=== PATIENT | male | born 1940 | race Caucasian/White ===

== ENCOUNTER 2018-02-08 02:04 | Outpatient (CLI) | payer MEDICARE, BC, SELFPAY ==
[2018-02-08 14:29] LABS: Hemoglobin A1C 5.4 % (4.5-6.2)
[2018-02-08 17:54] LABS: ALT 34 U/L (12-78); AST 21 U/L (15-37); Albumin 4.2 g/dL (3.4-5.0); Alkaline Phosphatase 61 U/L (46-116); Anion Gap 11.1 mmol/L (3-11); BUN 14 mg/dL (7-18); Bilirubin, Total 0.6 mg/dL (0.2-1.0); CO2 27.9 mmol/L (21.0-32.0); CREATININE 1.02 mg/dL (0.70-1.30); Calcium 9.2 mg/dL (8.5-10.1); Chloride 105 mmol/L (98-107); Cholesterol 202 mg/dL (50-200); Glucose 95 mg/dL (70-100); HDL Cholesterol 62 mg/dL (40-60); LDL CHOLESTEROL 118 mg/dL (<100); Potassium 4.3 mmol/L (3.5-5.1); Sodium 144 mmol/L (136-145); Total Protein 6.9 g/dL (6.4-8.2); Triglyceride 153 mg/dL (30-150)
== END 2018-02-08 02:24 ==
PROVIDERS: PCP Family Medicine; Visit Provider Family Medicine
DX: G45.3 Amaurosis fugax (principal); F32.9 Major depressive disorder, single episode, unspecified; E78.5 Hyperlipidemia, unspecified; I10 Essential (primary) hypertension; R74.0 Nonspecific elevation of levels of transaminase and lactic acid dehydrogenase [LDH]; R73.09 Other abnormal glucose
CPT/HCPCS: 36415; 80053; 80061; 83721; 83036

== ENCOUNTER 2018-07-03 11:43 | Outpatient (CLI) | payer MEDICARE, BC, SELFPAY ==
[2018-07-03 12:05] LABS: Abs Immature Grans 0.01 k/cumm (0.0-0.09); Absolute Basophil Count 0.05 k/cumm (0.0-0.2); Absolute Eosinophil Count 0.06 k/cumm (0.0-0.7); Absolute Lymphocyte Count 2.14 k/cumm (1.2-3.4); Absolute Monocyte Count 0.64 k/cumm (0.11-0.7); Absolute Neutrophil Count 4.14 k/cumm (1.2-6.7); Basophils % 0.7; Eosinophils % 0.9; HCT 44.6 % (40.0-50.0); HGB 15.6 g/dL (13.5-17.5); Immature Grans % 0.1; Lymphocytes % 30.4; Mean Corpuscular Hemoglobin 31.3 pg (27.0-33.0); Mean Corpuscular Volume 89.4 fL (80-95); Mean Platelet Volume 10.8 fL (8.0-11.0); Monocytes % 9.1; Neutrophils % 58.8; Platelet Count 225 x1000/uL (130-400); RBC 4.99 m/cumm (4.50-6.00); RBC Distribution Width 13.1 % (11.8-14.1); White Blood Cell Count 7.04 k/cumm (4.4-10.8)
[2018-07-03 12:36] LABS: ALT 25 U/L (12-78); AST 22 U/L (15-37); Albumin 4.1 g/dL (3.4-5.0); Alkaline Phosphatase 60 U/L (46-116); Anion Gap 6.7 mmol/L (3-11); BUN 10 mg/dL (7-18); Bilirubin, Total 0.6 mg/dL (0.2-1.0); C-Reactive Protein 0.49 mg/dL (0.0-0.3); CO2 29.3 mmol/L (21.0-32.0); CREATININE 0.87 mg/dL (0.70-1.30); Calcium 9.2 mg/dL (8.5-10.1); Chloride 102 mmol/L (98-107); Glucose 114 mg/dL (70-100); LDH 142 U/L (85-227); Potassium 4.6 mmol/L (3.5-5.1); Sodium 138 mmol/L (136-145); TSH (W/Ref FT4) 1.55 uIU/mL (0.358-3.74); Total Protein 7.6 g/dL (6.4-8.2)
[2018-07-03 12:44] LABS: ESR 8 MM/HR (1-20)
[2018-07-03 22:55] LABS: Iron 118 ug/dL (50-175)
[2018-07-03 23:22] LABS: Ferritin 99 ng/mL (8-388); Vitamin B12 485 pg/mL (193-986)
== END 2018-07-03 12:03 ==
PROVIDERS: PCP Family Medicine; Visit Provider Family Medicine
DX: R63.4 Abnormal weight loss (principal); R00.2 Palpitations; R74.0 Nonspecific elevation of levels of transaminase and lactic acid dehydrogenase [LDH]; G47.9 Sleep disorder, unspecified; N40.0 Benign prostatic hyperplasia without lower urinary tract symptoms
CPT/HCPCS: 36415; 80053; 85652; 82607; 82728; 83540; 83615; 84154; 84443; 85025; 86140

== ENCOUNTER 2018-07-05 01:20 | Outpatient (CLI) | payer MEDICARE, BC, SELFPAY ==
--- NOTE | 2018-07-05 08:59 | DI.US_ITS ---
SYMPTOM/DIAGNOSIS: WT LOSS, ABD PAIN, R63.4 ABDOMEN ULTRASOUND: Routine examination was performed. The abdominal aorta is of normal caliber. The IVC is unremarkable. The liver is normal in size. No hepatic mass is seen. The gallbladder is negative. No stones, sludge or gallbladder wall thickening is seen. There is a negative sonographic Dupree's sign. The common duct is within normal limits at .3 cm. The pancreas, spleen and kidneys are unremarkable. No free fluid is seen in the upper abdomen. IMPRESSION: Negative abdominal ultrasound.
--- NOTE | 2018-07-05 09:33 | DI.RAD_ITS ---
SYMPTOM/DIAGNOSIS: WT LOSS, PRODUCTIVE COUGH, R63.4 PA AND LATERAL CHEST: Comparison is made with 12/28/13. The heart is normal in size. The lungs are clear. The mediastinal structures and pleura appear intact. CONCLUSION: Normal chest.
[2018-07-05 10:20] LABS: Iron 127 ug/dL (50-175)
[2018-07-05 10:47] LABS: Ferritin 98 ng/mL (8-388); Vitamin B12 633 pg/mL (193-986)
== END 2018-07-05 01:40 ==
PROVIDERS: PCP Family Medicine; Visit Provider Family Medicine
DX: R63.4 Abnormal weight loss (principal); G47.9 Sleep disorder, unspecified; R53.83 Other fatigue; R10.84 Generalized abdominal pain; R05 Cough
CPT/HCPCS: 36415; 71046; 76700; 82607; 82728; 83540; 84154

== ENCOUNTER 2018-07-16 17:28 | Emergency (ER) | payer MEDICARE, BC, SELFPAY ==
[2018-07-16] VITALS (11 sets, daily range): BP systolic 118–168; BP diastolic 67–92; PULSE 80–104; RESP 0–20; TEMP 36.8–37.9; O2SAT 94–99
[2018-07-16] MEDS: Normal Saline 1,000 ML 1000 ML IV (18:08)
[2018-07-16 18:26] LABS: Abs Immature Grans 0.01 k/cumm (0.0-0.09); Absolute Basophil Count 0.05 k/cumm (0.0-0.2); Absolute Eosinophil Count 0.13 k/cumm (0.0-0.7); Absolute Monocyte Count 0.66 k/cumm (0.11-0.7); Absolute Neutrophil Count 6.12 k/cumm (1.2-6.7); Basophils % 0.5; Eosinophils % 1.3; HCT 48.6 % (40.0-50.0); HGB 16.8 g/dL (13.5-17.5); Immature Grans % 0.1; Lymphocytes % 28.7; Mean Corp. HGB Concentration 34.6 g/dL (32.0-36.0); Mean Corpuscular Hemoglobin 30.8 pg (27.0-33.0); Mean Platelet Volume 11.1 fL (8.0-11.0); Monocytes % 6.8; Neutrophils % 62.6; Platelet Count 264 x1000/uL (130-400); RBC 5.46 m/cumm (4.50-6.00); RBC Distribution Width 13.4 % (11.8-14.1); White Blood Cell Count 9.77 k/cumm (4.4-10.8)
--- NOTE | 2018-07-16 18:27 | W.ED.GENAD ---
Discharge Plan Disposition Patient Disposition: HOME Condition: Good Discharge Details Chief Complaint: Palpitatns Clinical Impression: Heart palpitations Primary Care Provider: Lalita Bernabe ED Provider: Fady Wang Home Meds and New Rx's Prescriptions: No Action clonazepam 1 mg tablet 1 mg PO BID PRNRF: 0 cannabidiol (CBD) extract 100 mg/mL solution 100 mg PO BID PRNRF: 0 aspirin [Abdoulaye Chewable Aspirin] 81 MG tablet,chewable 81 mg PO DAILY RF: 0 Stelara 45 MG/0.5 ML syringe 45 mg SQ q3 months RF: 0 lisinopril [Zestril] 20 MG tablet 1 tab PO DAILY Qty: 90 RF: 0 omeprazole 20 MG tablet,delayed release (DR/EC) 20 mg PO DAILY PRNQty: 90 RF: 12 Discharge Instructions Instructions: Palpitations (ED) Additional Instructions: You will be contacted by our respiratory therapist after you have been approved for the Zio patch. Please contact your primary care provider to reschedule your stress test. If your Lyme is positive you will be contacted by one of our continuous pillowcase cutter. If you notice any worsening of your symptoms, or any new symptoms such as vomiting, diarrhea, fever, chills, shortness of breath, chest pain, numbness, weakness, or fainting , please return immediately to the emergency department for reevaluation. Please follow up with your primary care provider as soon as possible for reassessment and reevaluation. As always, it was a pleasure participating in your medical care today. Referrals: Lalita Bernabe [place], [place] [Primary Care Provider] - Discharge Data Discharge Date/Time-TO BE ENTERED AT DEPARTURE: 07/16/18 21:25 Medical Decision Making This is a pleasant 77-year-old male who presents today for evaluation of palpitations. Initially he states that for the last 5 days he has had occasional notable palpitations, minimal pain associated with this, he has some associated pain with breathing, but denies any tearing sensation, severe heaviness weight, or arm neck or shoulder pain. Patient also states that he has had occasional symptoms like this for the last few months, but it is notably worse in the last 5 days. Physical exam demonstrates no significant abnormalities. He does start multiple herbal supplements. Patient is very concerned that his symptoms may be secondary to Lyme disease. He is specifically requesting that this is tested for. Patient is mildly tachycardic, but shows no other significant abnormalities on physical exam. We will evaluate for potential pulmonary embolism, electrolyte abnormality, cardiac etiology, or thyroid disorder as to the cause of his symptoms. 10 PM Patient's laboratory workup is returned notably benign, WBC count is normal, electrolytes are well within normal limits. Renal function is stable, calcium, magnesium, are all normal. Troponin is less than 0.02, TSH is normal. Lyme disease is a send out test we are pending these results. CT angiogram demonstrates no evidence of acute process or abnormality, no evidence of PE, dissection, pneumonia, or other pathology. EKG initially demonstrates sinus tachycardia, no other significant abnormalities. After roughly 10-20 minutes sitting in bed his heart rate came down to the 70s as a normal sinus rhythm. Occasional PVCs were noted on the monitor, however no other significant abnormalities were found. The patient's vital signs have normalized, he does demonstrate slight elevation in temperature at does admit to mild sore throat. He shows no signs of pharyngitis on exam. Feel that he may have a mild viral upper respiratory infection that is causing some of his symptoms in the acute phase, but certainly not his more chronic palpitations. He shows no signs of pericarditis or myocarditis. Pain is not changed with position, troponin is normal. He has no risk factors for endocarditis with no recent surgeries, procedures or dental procedures. With the patient's workup complete relatively benign for any acute life-threatening process I feel he can be safely discharged home with close follow-up with his primary care provider. We will set him up for a [facility], outpatient cardiology referral, and the patient states that he has the appropriate phone numbers for his own cardiac stress test. Will be contacted if his Lyme results are positive. I did have a long and thorough discussion with him regarding the importance of a critical attitude and an open mind with a test result for Lyme. I also explained to him that just because this test is positive it does not necessarily mean that his symptoms are secondary to this. We had a very candid discussion, all questions were answered. I have extensively reviewed the treatment plan and discharge instructions with the patient and their family. I have addressed all patient concerns at this time. The patient and family was made aware of what symptoms to monitor for that would warrant a return to the emergency department. Discussed the plan with the patient and family, they demonstrate verbal understanding and agreement with our assessment and plan at this time. 17: 33 Rate 102, intervals normal, to sinus tachycardia, no significant ST elevations or depressions, no significant T wave inversions. No Q waves. FINDINGS: Pulmonary arteries: No pulmonary arterial embolism identified. Aorta: Minimal atherosclerosis of the thoracic aorta. No thoracic aortic aneurysm or dissection. Lungs: No pulmonary consolidation. Minimal dependent changes within the lung bases, likely atelectasis. Pleural space: Normal. No pneumothorax. No pleural effusion. Heart: Mild coronary atherosclerosis. Liver: Too small to adequately characterize low-density lesions within the liver. Lymph nodes: Unremarkable. No enlarged lymph nodes. Bones/joints: Unremarkable. No acute fracture. Soft tissues: Unremarkable. IMPRESSION: No pulmonary artery embolism or other acute abnormality. Dictated and Authenticated by: Alireza Hernandez MD. Ordering:JIMMY Shrestha MD HPI General Date/Time Provider Initiated Documentation: 07/16/18 17:31. HPI Narrative: This is a 77-year-old male with a past medical history of hypertension, alcoholism for which she is recently associated from the past month, who takes multiple herbal supplements, who presents with 5-7 days of palpitations, occasional mild lightheadedness. Does admit to mild occasional shortness of breath as well. He denies any chest pain, arm pain neck pain or shoulder pain, numbness tingling, weakness, or syncope. His symptoms are not made worse with exertion. They are improved by nothing. Although the patient states that the symptoms have been worse over the last 5-7 days he now feels that actually may have been going on much longer than that. Patient denies any family history of sudden cardiac , DE, stroke, A. fib, Brugada, Fkksj-Gycvofzqv-Jvnaw, or other abnormalities. The patient states very frankly that he is certain that this is Lyme disease, similar to what his significant other had. He states that he above all else would like to be tested for that today. Patient denies any other complaints at this time. Of note he was seen by his primary care provider 2-3 weeks ago, at that time no significant abnormalities were noted. Related Data Home Medications Medication Instructions Recorded Confirmed aspirin [Abdoulaye Chewable Aspirin] 81 mg PO DAILY tab-cap 12/17/15 07/16/18 Stelara 45 mg SQ q3 months 12/23/15 07/16/18 lisinopril [Zestril] 1 tab PO DAILY #90 tab-cap 09/27/17 07/16/18 omeprazole 20 mg PO DAILY PRN #90 tab-cap 10/20/17 07/16/18 cannabidiol (CBD) 100 mg/mL oral 100 mg PO BID PRN ml 07/03/18 07/16/18 solution clonazepam 1 mg tablet 1 mg PO BID PRN tab 07/03/18 07/16/18 Previous Rx's Medication Instructions Recorded lisinopril [Zestril] 1 tab PO DAILY #90 tab-cap 09/27/17 Allergies Allergy/AdvReac Type Severity Reaction Status Date / Time latex Allergy Mild RASH Unverified 07/16/18 18:10 epinephrine AdvReac Intermediate Totally Unverified 07/16/18 18:10 wires me bupropion HCl AdvReac Unverified 07/16/18 18:10 [From Wellbutrin SR] MOLDS AND SMUTS Allergy Unknown Uncoded 07/16/18 18:10 General Stated Complaint: Palpitatns HAL: 3 Review of Systems Review of Systems All systems reviewed & are unremarkable except as noted in HPI and below PFSH Medical History Benign prostatic hyperplasia (Chronic 10/23/12) Sleep disorder (Chronic) Shoulder pain, right (Chronic 05/14/14) Psoriatic arthritis (Chronic) Multiple nevi (Chronic) Lumbar radiculopathy, chronic (Chronic 11/11/14) Knee pain (Chronic 05/14/14) Hyperlipidemia (Chronic) Essential hypertension (Chronic) Esophageal reflux (Chronic) Dupuytren's contracture of left hand (Chronic 12/28/16) Depressive disorder (Chronic) Chronic rhinitis (Chronic 06/07/13) Cervical disc prolapse with radiculopathy (Chronic) Anxiety (Chronic) 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) Actinic keratosis (Chronic) Alcohol intake above recommended sensible limits (Resolved) Blood glucose abnormal (Resolved) Disorder of liver (Resolved) Drug use disorder (Resolved) Elev transaminase/LDH (Resolved 10/23/12) Impacted cerumen (Resolved) Impacted cerumen (Resolved) Diverticulosis GERD (gastroesophageal reflux disease) HTN (hypertension) VERÓNICA (obstructive sleep apnea) Surgical History H/O arthroscopy of knee (Resolved) H/O cataract removal with insertion of prosthetic lens (Resolved) H/O knee surgery (Resolved) S/P appendectomy (Resolved) S/P laminectomy (Resolved) STANLEY REMOVAL B/L Appendectomy Arthroplasty of knee Colonoscopy - MAC (08/23/16) Extraction of cataract Finger surgery PATELLA REPAIR laminectomy (~1977) Family History Mother No problems noted. Father No problems noted. Sister Neoplasm Maternal Grandfather Diabetes Maternal Grandmother Alzheimer disease Paternal Grandmother No problems noted. Social History Smoking/Tobacco Use Status: Never Alcohol Intake: current Alcohol Intake frequency: a few times a week Alcohol type: beer Drug use: Never Substance use type: marijuana Household members: none Pets and animals: Yes Pets and animals: cat(s) Duration: decline to answer Frequency: 3-4 times per week Betsy/Denominational: [employer] Special betsy needs: No Do you feel safe at home: Yes Do you feel safe in your relationship?: Yes Exam Narrative Exam Narrative: 1.Const: Well-nourished, Well-developed, appearing stated age 2.Eyes: PERRL, no conjunctival injection, and symmetrical lids. 3.ENT: Atraumatic external nose and ears. Moist MM. Neck: Symmetric, trachea midline, No thyromegaly. 4.CVS: +S1/S2, No murmurs or gallops. Peripheral pulses 2+ and equal in all extremities. Brisk capillary refill in all extremities. 5.RESP: Unlabored respiratory effort. Clear to auscultation bilaterally. No wheezes rales or rhonchi 6.GI: Soft, Nontender/Nondistended, No hepatosplenomegaly. No guarding or rebound. 7.MSK: Normocephalic/Atraumatic, Extremities w/o deformity or ttp No cyanosis or clubbing, Normal movement of all extremities 8.Skin: Warm, Dry. No rashes or lesions. 9.Neuro: sas developer II-XII grossly intact. Sensation grossly intact, no focal neurologic deficits. 10.Psych: (AAO) x3. Appropriate mood and affect Course Vital Signs Respiratory Rate 14 07/16/18 17:26 Pulse Oximetry 99 07/16/18 17:26 Temperature 37.9 C H 07/16/18 17:35 Temperature Source Skin 07/16/18 17:35 Pulse 88 07/16/18 17:35 Pulse 92 H 07/16/18 17:50 Respiratory Rate 14 07/16/18 17:50 Respiratory Effort 07/16/18 18:13 Blood Pressure 168/75 H 07/16/18 17:35 Blood Pressure Position Sitting 07/16/18 17:35 Pulse Oximetry 97 07/16/18 17:50 Oxygen Delivery Method Room Air 07/16/18 17:35 Oxygen Flow Rate 0 07/16/18 17:35 Pain Level 5 07/16/18 17:35
[2018-07-16 18:40] LABS: PTT Activated 26.8 sec (21.0-31.4); Prothrombin Time 10.4 sec (9.3-11.0)
[2018-07-16 18:48] LABS: ALT 28 U/L (12-78); AST 17 U/L (15-37); Albumin 4.2 g/dL (3.4-5.0); Alkaline Phosphatase 63 U/L (46-116); Anion Gap 9.2 mmol/L (3-11); BUN 13 mg/dL (7-18); Bilirubin, Total 0.6 mg/dL (0.2-1.0); CO2 27.8 mmol/L (21.0-32.0); CREATININE 1.03 mg/dL (0.70-1.30); Calcium 9.2 mg/dL (8.5-10.1); Chloride 102 mmol/L (98-107); Glucose 131 mg/dL (70-100); Magnesium 1.8 mg/dL (1.8-2.4); Sodium 139 mmol/L (136-145); TSH (W/Ref FT4) 1.33 uIU/mL (0.358-3.74); Total Protein 7.6 g/dL (6.4-8.2); Troponin I < 0.02 ng/mL (0.00-0.06)
[2018-07-16 18:59] LABS: D-Dimer 497 ng/mlFEU (<500)
[2018-07-16] MEDS: Naproxen 250 MG TAB (19:04)
[2018-07-16] MEDS: Omnipaque 350 MG/ML 100 ML BTL IJ (19:30)
--- NOTE | 2018-07-16 19:45 | DI.CT_ITS ---
SYMPTOM/DIAGNOSIS: TACHYCARDIAC, SOB, CHEST PAIN, COUGH PE CHEST CT: CT angiography was performed with multi slice acquisition and multi planar and 3D reconstruction. CT angiography of the chest was performed with a bolus infusion of 80 cc's of Omnipaque 350. Images obtained through the upper abdomen show multiple low attenuation lesions with appearance similar to appearance on previous abdominal CT of 03/2008, presumed cysts. Otherwise liver, spleen, pancreas, adrenals and kidneys are unremarkable in appearance as visualized. Lungs are clear. No pleural effusion or pneumothorax. Tracheobronchial tree appears intact. No mediastinal mass or adenopathy. No evidence of pulmonary embolic disease. No thoracic aortic aneurysm or dissection. CONCLUSION: No evidence of pulmonary embolic disease.
--- NOTE | 2018-07-16 20:29 | DI.VRAD_ITS ---
EXAM: CT Angiography Chest With Contrast EXAM DATE/TIME: 07/16/2018 7:19 PM CLINICAL HISTORY: 77 years old, male; Signs and symptoms; Cough and other: Tachy, cp, SOB TECHNIQUE: Imaging protocol: Axial computed tomographic angiography images of the chest with intravenous contrast using CT angiography protocol. Coronal and sagittal reformatted images were created and reviewed. 3D rendering: MIP reconstructed images were created and reviewed. Radiation optimization: All CT scans at this facility use at least one of these dose optimization techniques: automated exposure control; mA and/or kV adjustment per patient size (includes targeted exams where dose is matched to clinical indication); or iterative reconstruction. Contrast material: Omnipaque 350 Contrast volume: 80 ml Contrast route: IV RAC COMPARISON: CR XR CHEST 2V PA LATERAL 07/05/2018 9:00 AM FINDINGS: Pulmonary arteries: No pulmonary arterial embolism identified. Aorta: Minimal atherosclerosis of the thoracic aorta. No thoracic aortic aneurysm or dissection. Lungs: No pulmonary consolidation. Minimal dependent changes within the lung bases, likely atelectasis. Pleural space: Normal. No pneumothorax. No pleural effusion. Heart: Mild coronary atherosclerosis. Liver: Too small to adequately characterize low-density lesions within the liver. Lymph nodes: Unremarkable. No enlarged lymph nodes. Bones/joints: Unremarkable. No acute fracture. Soft tissues: Unremarkable. IMPRESSION: No pulmonary artery embolism or other acute abnormality. Dictated and Authenticated by: Alireza Hernandez MD. Ordering:JIMMY Shrestha MD
--- NOTE | 2018-07-17 08:38 | PDOC.ERCMPRO ---
Care Management Progress Note 4/-Dr. Wang requested assistance with a cardiology f/u as soon as possible for PVC's and palpitations. Also sent referral to PCP, Dr. Bernabe's office, for f/u as soon as possible. Referrals faxed to cardiology and [facility] this am.
[2018-07-18 12:29] LABS: Lyme Ab w Rflx to Lyme Confirm Negative
== END 2018-07-16 21:25 | disposition home or self-care (01) ==
PROVIDERS: Emergency Provider Student in an Organized Health Care Education/Training Program; PCP Family Medicine
DX: R00.0 Tachycardia, unspecified (principal); I10 Essential (primary) hypertension
CPT/HCPCS: 36415; 71275; 80053; 93005; 96360; 99285; 83735; 84443; 84484; 85025; 85379; 85610; 85730; 86618; 93010; J3490

== ENCOUNTER 2018-07-26 00:07 | Outpatient (CLI) | payer MEDICARE, BC, SELFPAY ==
--- NOTE | 2018-07-26 06:54 | MERGEMPI_ITS ---
*[facility]* *[facility]* [address] [place] [address] Myocardial Perfusion Imaging - SPECT Regadenoson Date of study: 07/26/2018 *PATIENT PRESENTATION* Height: 175.3cm (69in) Blood Pressure: Weight: 85kg (187lb) BSA: 2.05m^2 Referring physician: Jose Garcia Ordering physician: Lalita Bernabe Impressions: Normal myocardial perfusion and contraction after pharmacological stress. Summary: 1. Myocardial perfusion imaging: No myocardial perfusion defects noted. 2. The calculated left ventricular ejection fraction after stress: 58%. LV global systolic function is normal. No left ventricular regional motion abnormality. 3. Stress ECG conclusions: The stress ECG is negative. 4. Imaging information: gated. Image quality reduced due to diaphragmatic attenuation. Attenuation correction used. Indication: R07.89, Appropriate Use Criteria: M (May be appropriate). History: Patient's presenting symptoms: asymptomatic. Risk factors: REASON FOR VISIT: PATIENT EVALUATED AT [facility] ED ON 07/16/18 FOR C/O PALPITATIONS WITH NO ASSOCIATED SYMPTOMS. PATIENT HAS BEEN EXPERIENCING PALPITATIONS OVER THE PAST FEW MONTHS, WORSENING OVER THE PAST 5 DAYS. PATIENT CANNOT EXERCISE ON TREADMILL DUE TO TORN ACHILLES TENDON. PAST MEDICAL HISTORY: BPH, AMAUROSIS FUGAX, ANXIETY, ALCOHOLISM, CERVICAL DISC PROLAPSE WITH RADICULOPATHY, DEPRESSIVE DISORDER, DISORDER OF LIVER, DIVERTICULOSIS, DRUG USE DISORDER, GERD, HTN, HYPERLIPIDEMIA, VERÓNICA, PSORIATIC ARTHRITIS. FAMILY HISTORY: NONE. SMOKING STATUS: NEVER SMOKER. EXERCISE ROUTINE: WEIGHT TRAINING 3X/WEEK. Hypertension. Cholesterol: 190mg/dl. HDL: 62mg/dl. LDL: 118mg/dl. Triglycerides: 153mg/dl. ALLERGIES: LATEX, EPINEPHRINE, BUPROPION HCL, MOLD. MEDICATIONS: ASPIRIN 81MG, DAILY. CANNABIDIOL 100MG, BID PRN. CLONAZEPAM 1MG, BID PRN. LISINOPRIL, DAILY. OMEPRAZOLE 20MG, PRN. STELARA 45MG SUBQ, Q3 MONTHS. Imaging Technique: Protocol: Regadenoson. Acquisition: Gated SPECT; 1 day - rest/stress. The patient was imaged in the supine position. Attenuation correction used. Isotope administration: - Rest. Tc[99m]-sestamibi. Dose: 10.9mCi. Injection time: 11:30 AM. Injection to stress time: 00:45. - Stress. Tc[99m]-sestamibi. Dose: 30.8mCi. Injection time: 01:38 PM. 1-2 min before end of exercise Baseline ECG: SINUS RHYTHM. HEART RATE 69 BPM. Normal ECG. Stress protocol: +--------+--+ + + !Stage !HR!BP (mmHg) !Comments ! +--------+--+ + + !Baseline!69!132/78 (96)! ! +--------+--+ + + !1 min !84!130/64 (86)!Inject Regadenoson.! +--------+--+ + + !3 min !75!142/70 (94)! ! +--------+--+ + + !6 min !72!144/74 (97)! ! +--------+--+ + + !1 min !--! !Inject Regadenoson.! +--------+--+ + + * Stress results: The rate-pressure product for the peak heart rate and blood pressure was 18089ul Hg/min. Stress ECG: STRESS TEST ENDED IN 6MIN 30SEC WHEN ALL SYMPTOMS OF REGADENOSON INJECTION SUBSIDED. APPROPRIATE HEART RATE AND BLOOD PRESSURE RESPONSE TO REGADENOSON INJECTION. OCCASIONAL PVC NOTED. NO ANGINA REPORTED. NO SIGNIFICANT ST SEGMENT CHANGES NOTED. The stress ECG is negative. Myocardial perfusion: Imaging information: gated. Image quality reduced due to diaphragmatic attenuation. Left ventricular size is normal. No myocardial perfusion defects noted. Ventricular Function (Wall Motion): The calculated left ventricular ejection fraction after stress: 58%. LV global systolic function is normal. No left ventricular regional motion abnormality. Study data: Jose Garcia MD supervised and was readily available during the procedure. This study was interpreted by [facility]. Study status: Routine. Consent: The risks, benefits, and alternatives to the procedure were explained to the patient and informed consent was obtained. Procedure: Initial setup. A baseline ECG was recorded. Surface ECG leads and manual cuff blood pressure measurements were monitored. Heart sounds: Normal. Lung sounds: Normal. Regadenoson stress test. Stress testing was performed, with regadenoson by intravenous bolus, for a total dose of 0.4mgover 10.00sec, followed by a 5ml saline flush. The infusion was terminated due to per protocol. Study completion: All catheters inserted during the procedure were removed. The patient tolerated the procedure well and was discharged from the lab. Discharge: The patient left the laboratory in stable condition. Birthdate: Patient birthdate: 1940. Sex: Gender: male. Study date: Study date: 07/26/2018. Study time: 00:01 AM. Signature Documentation: - The imaging portion of this study was interpreted by [employer] Jose Garcia MD. - The Stress ECG portion of this study was interpreted by Jose Garcia MD. Electronically signed by Jose Garcia 07/26/2018 15:52
[2018-07-26] MEDS: Regadenoson 0.4 MG/5 ML SYR IVP (14:22)
== END 2018-07-26 00:27 ==
PROVIDERS: PCP Family Medicine; Visit Provider Family Medicine
DX: R07.89 Other chest pain (principal); R00.2 Palpitations; I10 Essential (primary) hypertension; E78.5 Hyperlipidemia, unspecified; F41.9 Anxiety disorder, unspecified
CPT/HCPCS: 78452; 93016; 93018; 93017; J2785

== ENCOUNTER 2019-05-30 01:18 | Outpatient (CLI) | payer MEDICARE, BC, SELFPAY ==
--- NOTE | 2019-05-30 13:45 | DI.US_ITS ---
EXAM: US AXILLA RT CLINICAL HISTORY: LEFT AXILLARY MASS/LUMP, N63.31 TECHNIQUE: Ultrasound performed using standard protocol. COMPARISON: CT CHEST PE CTA from 07/16/2018 FINDINGS: There is a vague area in the axilla roughly measuring 3.4 x 1.4 x 3.1 cm. It could represent a lymph node with a central fatty hilum or lipoma. No definite abnormality was seen on the previous CT. IMPRESSION: Questionable fatty lesion in the left axilla, which could represent a lipoma or lymph node. DATA REPOSITORY:
== END 2019-05-30 01:38 ==
PROVIDERS: PCP Family Medicine; Visit Provider Family Medicine
DX: R22.31 Localized swelling, mass and lump, right upper limb (principal); R59.0 Localized enlarged lymph nodes
CPT/HCPCS: 76642

== ENCOUNTER → 2019-06-13 11:21 | Outpatient (BNVA) | payer MEDICARE, BC, SELFPAY ==
--- NOTE | 2019-06-13 13:49 | ROE_ITS ---
REPORT OF OPERATIVE PROCEDURE DATE OF PROCEDURE June 13, 2019 PREOPERATIVE DIAGNOSIS Soft tissue mass right axilla, lymph node versus lipoma. POSTOPERATIVE DIAGNOSIS Soft tissue mass right axilla, lymph node versus lipoma. PROCEDURE Core needle biopsy. SURGEON Estrella Seals D.O. ANESTHESIA Local. ESTIMATED BLOOD LOSS Less than 1 cc COMPLICATIONS The patient tolerated the procedure well without complications. INDICATIONS The patient is a 78-year-old male who presents at the request of his primary care physician. He has had a soft tissue fullness for about the past eight weeks. He was recently diagnosed with the flu. It is soft with indiscrete borders. It does not feel like a lymph node or a lipoma. He did have an ultrasound that did suggest either of these two etiologies. The patient does not want to wait and wishes to proceed. Informed consent was obtained explaining the risks and benefits of the procedure including but not limited to bleeding, infection, scarring, need for more tissue, and complications from the anesthesia. DESCRIPTION OF PROCEDURE The patient was brought to the Procedure Room, placed in the supine position with the arm placed behind his head. The area was prepped and draped in usual sterile fashion using ChloraPrep scrub solution. Time out was performed. 3 cc of 1% xylocaine was used for a local anesthesia. A small skin ean is made with a #11-blade. Four passes of Claude-cut core needle biopsy are used to obtained specimen. Good specimen is noted. Pressure is held. There is on bleeding. A Band-Aid is applied. The patient should use ice, Tylenol or ibuprofen for pain. He should expect some mild bruising. If there is any bleeding hold pressure, if it is heavy bleeding that does not jorge, return to the Emergency Department. He will followup in two weeks' time for results. On Exam: He also has a fullness above his right clavicle. Again, I do not palpate any discrete mass, but he definitely has a fullness in this area. We will obtain an ultrasound of this area as well today. Thank you for allowing me to participate in the care of this patient.
== END ==
PROVIDERS: PCP Family Medicine; Referring Provider Family Medicine; Visit Provider Surgery
DX: R22.31 Localized swelling, mass and lump, right upper limb (principal); M79.89 Other specified soft tissue disorders; D17.9 Benign lipomatous neoplasm, unspecified

== ENCOUNTER 2019-06-13 12:43 | Outpatient (REF) | payer MEDICARE, BC, SELFPAY ==
--- NOTE | 2019-06-13 12:00 | SOFT_PTH ---
PATIENT: Kurt Harrell LOC: N U#:[id number] AGE/SX: 78/M ROOM: RE06/13/[address]: Estrella Seals : 1940 BED: DIS: 06/13/2019 SPEC #: [id number] RECD: 06/13/19 12:58 STATUS: AVINASH REQ #: [id number] NORI: 06/13/19 12:[address]: Estrella Seals DEPT: Surgical Specimen RECD BY: Nasra Owens ENTERED: 06/13/19 12:59 SP TYPE: SOFT OTHR DR: Lalita Bernabe MD, DC Tissues: 1 - SOFT TISSUE MISC (INC. LIPOMA) Procedures: GROSS AND MICRO LEVEL 4 Comments: [id number]
== END 2019-06-13 13:03 ==
LOC: LBN 12:43
PROVIDERS: PCP Family Medicine; Visit Provider Surgery
DX: R22.31 Localized swelling, mass and lump, right upper limb (principal); D21.11 Benign neoplasm of connective and other soft tissue of right upper limb, including shoulder
CPT/HCPCS: 88305; 88304

== ENCOUNTER 2019-06-18 01:39 | Outpatient (CLI) | payer MEDICARE, BC, SELFPAY ==
--- NOTE | 2019-06-18 12:15 | DI.US_ITS ---
EXAM: US SOFT TISSUE HEAD OR NECK CLINICAL HISTORY: soft tissue mass above right clavicle R22.9 SWELLING, MASS LUMP, M79.89 TECHNIQUE: Ultrasound performed using standard protocol. COMPARISON: No exams were available for comparison FINDINGS: The area of patient concern in the right lateral neck was scanned. No mass or fluid collection is s een. No adenopathy is identified. There is no edema in the subcutaneous tissue. IMPRESSION: Negative ultrasound of the neck. DATA REPOSITORY:
== END 2019-06-18 01:59 ==
PROVIDERS: PCP Family Medicine; Visit Provider Surgery
DX: M79.89 Other specified soft tissue disorders (principal); R22.1 Localized swelling, mass and lump, neck
CPT/HCPCS: 76536

== ENCOUNTER → 2019-06-27 12:52 | Outpatient (BNVA) | payer MEDICARE, BC, SELFPAY | PROVIDERS: PCP Family Medicine; Referring Provider Family Medicine; Visit Provider Surgery | DX: D17.1 Benign lipomatous neoplasm of skin and subcutaneous tissue of trunk (principal); I10 Essential (primary) hypertension | CPT/HCPCS: 99212; 99213 ==

== ENCOUNTER 2019-08-30 00:54 | Outpatient (CLI) | payer MEDICARE, BC, SELFPAY ==
--- NOTE | 2019-08-30 07:30 | DI.RAD_ITS ---
EXAM: XR SHOULDER RT COMPLETE 2+V CLINICAL HISTORY: chronic r shoulder pain,M25.511 TECHNIQUE: COMPARISON: CR BILATERAL HIPS ADULT from 10/17/2014 FINDINGS: Six views were obtained. There is moderate narrowing of the cartilaginous joint space of the glenohu meral joint. There are moderate marginal osteophytes of the glenohumeral joint, particularly inferio rly. Mild subchondral sclerosis noted. There are a couple of soft tissue calcifications seen adjace nt to the supraspinatus insertion on humeral head. There are moderate hypertrophic degenerative changes of the acromioclavicular joint. IMPRESSION: Degenerative changes as described above with moderate degenerative change of the glenohumeral joint.
== END 2019-08-30 01:14 ==
PROVIDERS: PCP Family Medicine; Visit Provider Family Medicine
DX: M25.511 Pain in right shoulder (principal); M19.011 Primary osteoarthritis, right shoulder
CPT/HCPCS: 73030

== ENCOUNTER → 2019-09-11 13:06 | Outpatient (BNVA) | payer MEDICARE, BC, SELFPAY | PROVIDERS: PCP Family Medicine; Referring Provider Family Medicine; Visit Provider Student in an Organized Health Care Education/Training Program | DX: S46.011A Strain of muscle(s) and tendon(s) of the rotator cuff of right shoulder, initial encounter (principal); X58.XXXA Exposure to other specified factors, initial encounter; M75.21 Bicipital tendinitis, right shoulder; M75.51 Bursitis of right shoulder; M19.011 Primary osteoarthritis, right shoulder | CPT/HCPCS: 99204; 99215 ==

== ENCOUNTER → 2019-10-23 14:16 | Outpatient (BNVA) | payer MEDICARE, BC, SELFPAY | PROVIDERS: PCP Family Medicine; Referring Provider Family Medicine; Visit Provider Student in an Organized Health Care Education/Training Program | DX: S46.011D Strain of muscle(s) and tendon(s) of the rotator cuff of right shoulder, subsequent encounter (principal); X58.XXXD Exposure to other specified factors, subsequent encounter; M75.21 Bicipital tendinitis, right shoulder; M75.51 Bursitis of right shoulder; M19.011 Primary osteoarthritis, right shoulder; I10 Essential (primary) hypertension | CPT/HCPCS: 99213 ==

== ENCOUNTER 2020-02-19 03:53 | Outpatient (CLI) | payer MEDICARE, BC, SELFPAY ==
[2020-02-19 15:27] LABS: ALT 29 U/L (16-63); AST 19 U/L (15-37); Albumin 4.3 g/dL (3.4-5.0); Alkaline Phosphatase 59 U/L (46-116); Anion Gap 7.8 mmol/L (3-11); BUN 15 mg/dL (7-18); Bilirubin, Total 0.3 mg/dL (0.2-1.0); CO2 28.2 mmol/L (21.0-32.0); Calcium 9.2 mg/dL (8.5-10.1); Calculated LDL 138 mg/dL (<100); Chloride 102 mmol/L (98-107); Cholesterol 223 mg/dL (<200); Glucose 101 mg/dL (74-106); HDL Cholesterol 71 mg/dL (40-60); Potassium 4.6 mmol/L (3.5-5.1); Sodium 138 mmol/L (136-145); Total Protein 7.4 g/dL (6.4-8.2); Triglyceride 73 mg/dL (<150)
== END 2020-02-19 04:13 ==
PROVIDERS: PCP Family Medicine; Visit Provider Family Medicine
DX: I10 Essential (primary) hypertension (principal); E78.5 Hyperlipidemia, unspecified; G45.3 Amaurosis fugax
CPT/HCPCS: 36415; 80053; 80061

== ENCOUNTER 2021-02-17 07:32 | Emergency (ER) | payer MEDICARE, BC, SELFPAY ==
[2021-02-17] VITALS (20 sets, daily range): BP systolic 118–177; BP diastolic 72–103; PULSE 63–103; RESP 7–23; TEMP 36.8–37.1; O2SAT 95–100
--- NOTE | 2021-02-17 07:30 | RT.EKG_ITS ---
APPROVED REPORT Exam: Resting ECG Reason for Exam: chest pain Patient Location: E HR:72 bpm ECG Measurements Heart Rate 72 AXIS LA 193 P 38 QRSd 88 QRS 8 QT 381 T 11 QTc 419 Conclusion Sinus rhythm...normal P axis, V-rate 60- 99 Consider inferior infarct...Q >35mS in II III aVF
--- OUTSIDE RECORDS SUMMARY | 2021-02-17 07:39 | XMS_ITS ---
:1940 Author Care Team Providers Name Role Phone Saman Angelica Primary Care Provider Unavailable Allergies None recorded. Medications Name Status Start Date Stop Date ? ? clonazepam 1 mg tablet Completed ? 1 Take 1 tablet 3 times a day by oral route as needed. lisinopril 20 mg tablet Active ? Not avai lable TAKE ONE TABLET BY MOUTH EVERY DAY omeprazole 20 mg capsule,delayed release Active ? Not available TAKE ONE CAPSULE BY MOUTH EVERY DAY NEEDED FOR REFLUX prednisolone acetate 1 % eye Active ? Not available drops,suspension Stelara 45 mg/0.5 mL subcutaneous syringe Active ? Not available INJECT 45 MG UNDER THE SKIN EVERY 12 WEEKS triamcinolone acetonide 0.1 % topical cream Active ? Not available APPLY TO FOOT TWICE DAILY ustekinumab 45 mg/0.5 mL subcutaneous solution Active ? Not available Inject 1 mL every 3 months by subcutaneous route. Notes: Maricarmen-52 1 capsule BID Zyrtec 1 capsule BID Saccharomyces boulardii 2 capsules daily Psyllium 3 capsules TID (irregular) GI-MicrobX 1 capsule in the AM Digestzymes 2 with each meal (twice odalys y) CandiBactin (not taking) K2/D3 combination 100 mcg D3 1500 IU Apple Pectin capsules Fish oil 1200 mg daily Magnesium, Triple 400 mg PO QD Problems None recorded. Procedures None recorded. Results Lab Results Date Name Specimen Result Interpretation Description Value Range Status Address ? ? Calprotectin, ? No observation ? ? ? Diagnostic Stool recorded. [facility] : [address], [place] ? Stool Examination ? No observation ? ? ? Diagnostic recorded. [facility] : [address], [place] Past Encounters 12/10/2020 Diarrhea; Epigastric Pain; Helicobacter Pylori Gastrointestinal Tract Infection; Feces Contents Abnormal Angelica Davison, [place]: [address] [address], [place]. 08/01/2020 Abdominal Pain Angelica Davison, [place]: [address] [facility], [address] [facility], [place] [address], Ph. Social History None recorded. Vaccine List None recorded. Plan of Care Patient Instructions Dear Ata, It was nice to speak to you today. As promised, I am sending a re-referral to Dr. Bryant's office at [facility] [place]. To soothe the GI discomfort, I am recomm ending: -Herbal GI by Monica at 2 capsules twice daily (we will have this at the office when you come in on Tuesday) and -L-glutamine 1 scoop, once daily to liqu id For upper GI support in context of H. py linnette finding, I am recommending GastroMend HP. I sent a link for this to [facility]. Should you see signs of dehydration, any acceleration of abdominal pain or diarrhea, or fever, please present to the ER without hesitation. I will look forward to seeing you next w [facility] when you present for the blood draw. I am planning to order the following: _comprehensive metabolic profile (includ es liver function markers) - complete blood cell count -lipase and amylase pancreatic markers -hemoglobin A1c -Vitamin D Please contact me with any changes or co ncerns. Warmly, MM Dear Kurt, I am so sorry for the delay. I wanted to take the time to look back at some of your prior labs and to think a bit about the recent bout of abdominal pain that you've had. I do believe the stool test paige l be a good application to investigate f unctional contributors to your digestive symptoms. I also think the following labs might be helpful. They may have better chance at coverage if ordered by your PCP. I would like to see the following labs d ue to abdominal pain, intermittent loose stools: Amylase -serum Lipase -serum Comprehensive Metabolic Panel Complete Blood Cell Count with Different ial Iron Ferritin ESR C-reactive protein The kit should be on its way to your corrina e. Please let me know if you have any questions or concerns. I am looking forward to resuming our work together. Reminders Provider Appointments None recorded. ? ? Lab None recorded. ? ? Referral None recorded. ? ? Procedures None recorded. ? ? Surgeries None recorded. ? ? Imaging None recorded. ? ? Vitals None recorded.
--- OUTSIDE RECORDS SUMMARY | 2021-02-17 07:39 | XMS_ITS | Encounter Summary ---
:1940 Author Reason for Visit lab follow-up telephone consult today Assessment and Plan Assessment Note Ata and I discussed that with any continued diarrhea, signs of dehydration, or escalation in abdominal pain, he should report to the ER. He will present for a blood draw when our pigment and lacquer mixer, Abby, is available next week. 30 minutes in consult today. 10 minutes reviewing lab prior to consultation. 1. Diarrhea -check amylase, lipase -check CMP, CBC ? diarrhea: care instruction s 2. Epigastric pain -past hx of gastric ulcer -I would like Ata to have a work-up for this concern. -I am recommending that he reconnect for consult with Dr. Bryant. I will send referral to facilitate referral. ? pct referra amaral - Dear Dr. Bryant, I hope this correspondence finds you healthy and wel l. I am sending a referral for Kurt Harrell 1940. He has been seen several years ago at your office but is having some symptoms that are concerning to me at pr esent. He has been experiencing epigastric pain (has hx of ulcer) and diarrhea on a n intermittent basis. His stool test was reassuring in that calprotectin and FIT were normal/negative. Ata will present to the ER should his symptoms become more a cute. In the interim, I hoped he could initiate an evaluation with you to inves tigate these concerns. He will be presenting in person to our office next week for a blood test and I will order CMP, CBC, pancreatic markers. Thank you so much fo r your expertise in evaluating Kurt. ALLISON Klein 3. Helicobacter pylori gastroint estinal tract infection -H. pylori by PCR was slightly elevated over reference range. -Context of prior ulcer, therefore, I wo uld like to rule this out in context of epigastric pain. 4. Feces contents abnormal Lab tests reviewed: stool prof [employer] DOC: 11/20/2020 Remarkable findings include: Pathogen screen: NORMAL H. pylori screen: ABNORMAL, positive PCR quant. Normal tsering: ABNORMAL, dysbiotic Opportunistic tsering screen: ABNORMAL--ov ergrowth, dysbiotic Fungal/yeast screen: NORMAL Virus screen: ABNORMAL Protozoa screen: NORMAL Helminth screen: NORMAL Digestive Marker: SIgA NORMAL-low Digestive Marker: Steatocrit NORMAL Calprotectin: NORMAL Occult Blood: NORMAL Antigliadin IgA: NORMAL *Negative FIT and calprotectin are somew hat reassuring. I am still recommending endoscopic evalu ation to investigate epigastric pain, colonoscopy in context of ongoing diarrheal concerns and abd pain. Discussion Note: None recorded. Plan of Care Patient Instructions Dear Ata, It was nice to speak to you today. As promised, I am sending a re-referral to Dr. Bryant's office at [facility]. To soothe the GI discomfort, I am recomm ending: -Herbal GI by Monica at 2 capsules twice daily (we will have this at the office when you come in on Tuesday) and -L-glutamine 1 scoop, once daily to liqu id For upper GI support in context of H. py linnette finding, I am recommending GastroMend HP. I sent a link for this to [facility]. Should you see signs of dehydration, any acceleration of abdominal pain or diarrhea, or fever, please present to the ER without hesitation. I will look forward to seeing you next w compa when you present for the blood draw. I am planning to order the following: _comprehensive metabolic profile (includ es liver function markers) - complete blood cell count -lipase and amylase pancreatic markers -hemoglobin A1c -Vitamin D Please contact me with any changes or co ncerns. Warmly, MM Reminders Provider Appointments None recorded. ? ? Lab None recorded. ? ? Referral [facility] Gray Referral 12/11/2020 Manny GARCÍA Procedures None recorded. ? ? Surgeries None recorded. ? ? Imaging None recorded. ? ? Medications Name Start Date ? ? lisinopril 20 mg tablet ? TAKE ONE TABLET BY MOUTH EVERY DAY omeprazole 20 mg capsule,delayed release ? TAKE ONE CAPSULE BY MOUTH EVERY DAY NEEDED FOR REF LUX prednisolone acetate 1 % eye drops,suspension ? Stelara 45 mg/0.5 mL subcutaneous syringe ? INJECT 45 MG UNDER THE SKIN EVERY 12 WEEKS triamcinolone acetonide 0.1 % topical cream ? APPLY TO FOOT TWICE DAILY ustekinumab 45 mg/0.5 mL subcutaneous solution ? Inject 1 mL every 3 months by [...] daily Magnesium, Triple 400 mg PO QD Medications Administered None recorded. Vitals None recorded. Results Lab Results None recorded. Allergies None recorded. Problems None recorded. Procedures None recorded. Vaccine List None recorded. Social History None recorded. Functional Status Unknown. Past Encounters 12/10/2020 Diarrhea; Epigastric Pain; Helicobacter Pylori Gastrointestinal Tract Infection; Feces Contents Abnormal Angelica Davison, [place]: [address] [address], [place]. History of Present Illness Note: <div>Ata and I had a telephone consult today to review lab results and to discuss care plan for abdominal pain, intermittent diarrhea. </div><div>
</div><div>Epigastric and LUQ pain, ongoing 4 of 08/25. Constant pain. </div><div>Ata is taking ome prazole at 20 mg PO QD for GERD. </div><div>Previously, the omeprazole kept the GI discomfort at bay, but hasn't been helpful of late. He has not had an endoscopy in 10-15 years. </div><div>Denies fever. </div><div>
</div><div>Ata reports that he began having abdominal discomfort in July 2020. </div><div>He reports that hebegan taking Digestzymes, CandiBactin AR, GI MicrobX. </div><div>He had some easing of symptoms for a brief period of time.</div><div>He reports that stool is typically loose. &l t;/div><div>He is currently experiencing diarrhea. Has had 6-8 stools today. Feels exhausted. </div><div>In July, he had alternating diarrhea and constipation. </div><div>Taking psyllium. </div><div>Had an exacerbation of hemorrhoids in July. Currently not having hemorrhoidal activity. </div><div>
</div><div>Dietary patter ns:</div><div>has a couple meals per day.</div><div>eating fruits, very little gluten, sauteed vegetables</div><div>occasionally eats meats, no red meatl; frequent consumption of poultry</div><div>Drinks: any carbonation triggers pain in the abdomen, alcohol triggers abdominal pain</div><div>Food consumption does not always contribute to pain. Consumption of alcohol or carbonation is a reliable trigger. </div><div>
</ div><div>Ata has a past hx of gastric ulcer and was treated with a conventional care protocol. </div><div>He is not currently noting any blood or black stools, but reports that hehad experienced this several months prior.</div><div>
</div><div>Heis a prior patient of Dr. Neeru Bryant at [facility]. </div><div>
</div><div>
</div> Review of Systems: ROS as noted in the HPI Review of Systems None recorded. Physical Exam ? Notes: <div>No physical exam today due to telephone consult. </div>
--- NOTE | 2021-02-17 08:01 | W.ED.GENAD ---
Discharge Plan Disposition Patient Disposition: [facility] Condition: Serious Discharge Details Clinical Impression: NSTEMI (non-ST elevated myocardial infarction), Back pain Primary Care Provider: Lalita Bernabe ED Provider: Neisha Fong Home Meds and New Rx's Prescriptions: No Action cannabidiol 100 mg/mL solution 100 mg PO BID PRNRF: 0 omeprazole 20 mg tablet,delayed release (DR/EC) 20 mg PO DAILY PRN (Reason: reflux) Qty: 90 RF: 3 Stelara 45 MG/0.5 ML syringe 45 mg SQ q3 months RF: 0 lisinopril [Zestril] 20 mg tablet 20 mg PO DAILY Qty: 90 RF: 4 Discharge Data Discharge Date/Time-TO BE ENTERED AT DEPARTURE: 02/17/21 10:23 Medical Decision Making 0750 -- 80-year-old male with a history of alcohol abuse, anxiety, depression, hypertension, hyperlipidemia, GERD, obstructive sleep apnea presents for right-sided chest pain since yesterday. Admits to a mechanical fall 1 week ago in which he hit his right upper and mid back 0.4. Still is having continued right mid and upper back pain. Pain in right chest worse with deep breath and movement. EKG on arrival notes a rate of 72, sinus with [address] elevation in inferior and less than [address] depression in lateral leads. Does not meet official criteria for STEMI but does appear new compared to previous EKG June 2018. Blood pressure initially hypertensive, now improved to 142/74, remainder vitals within normal limits. His pain does appear reproducible as he has pain with movement and palpation. Will obtain screening labs including cardiac work-up, CT chest abdomen pelvis and T and L-spine recons. He has a healing laceration to his scalp which would have required evans. We will also obtain CT head and cervical spine. Last tetanus 819 -- Labs reviewed. White blood cell count normal at 10. Troponin I 0.16. Called [facility] for stat cardiology consult for recommendations. 834 -- Discussed with [facility] cardiology. Repeat EKG obtained with no significant change. Right-sided the EKG obtained which notes concern for potential developing infarct in inferior leads with reciprocal depressions in lateral leads -- per [facility] [place] [facility] - does not meet official criteria for STEMI. Recommends aspirin, heparin bolus and drip. Will discuss with attending team whether will plan to lyse. 0845 -- CT head and cervical spine negative. CT chest abdomen pelvis negative for acute findings. CT and L-spine notes T12 minimal anterior compression deformity of uncertain age. Patient is tender in the area could be acute. After return from radiology, patient remains hemodynamically stable. Heart rate 69, blood pressure 148/72. Patient refused morphine initially and requested naproxen. He is now agreeable to morphine and will hold on NSAIDs at this time. Bedside cardiac ultrasound notes normal wall motion. No pericardial effusion noted. 09 -- After further discussion with attending, recommend 600 mg of Plavix, nitro drip for pain. No plan for lytics at this time. discussed my concern for inferior infarction with nitro drip but they would like to proceed with this for pain control and to stop if patient becomes hypotensive. Accepting physician Dr. Laura. [facility] contacted for transfer. [facility] notified of T12 compression deformity. Images pushed for their review. 1030 -- [facility] transporting pt. Medical Records Medical records reviewed: Yes I reviewed the patient's medical records. Imaging Data Radiologic Study: Radiologist's impression: CT HEAD CERVICAL SPINE WO COMPARISON: No exams were available for comparison FINDINGS: CT examination of the cervical spine was performed without contrast administration. There is no evidence of acute cervical spine fracture or dislocation. Intervertebral disc spaces are well maintained. Tracheolaryngeal structures appear intact. No cervical mass or adenopathy. Noncontrast cranial CT was performed. There was significant motion artifact which degrades images obtained through the middle and posterior fossa. Ventricular system is normal in appearance. No evidence of acute intracranial hemorrhage, mass effect, or midline shift. No calvarial fracture. The orbital and temporal bone structures appear intact. Visualized mastoid air cells and paranasal sinuses appear clear. IMPRESSION: No evidence of acute cervical spine injury. No evidence of acute intracranial injury. CT CHEST PE ABD PELVIS W TECHNIQUE: CT examination of the chest, abdomen, and pelvis was performed with bolus infusion of 100 cc of Omnipaque 350. 3D reconstructions were obtained and interpreted the chest abdomen pelvis CT as well as the additional thoracic and lumbar spine reconstruction. COMPARISON: CT CT CHEST PE CTA from 07/16/[address] THORACIC LUMBAR SPINE REC from 02/17/[address] THORACIC LUMBAR SPINE REC from 02/17/2021 FINDINGS: There is no evidence of a thoracic vascular injury. The lungs are clear. No pneumothorax or pleural effusion. No mediastinal hematoma. No adenopathy in the chest. Tracheobronchial tree appears intact. The liver, spleen, and pancreas appear normal except for incidental apparent hepatic cysts period. Gallbladder and bile ducts are normal. Adrenals and kidneys are unremarkable. No evidence of urinary tract injury or obstruction. No abdominal or pelvic vascular injury seen. No abdominal or pelvic adenopathy. No significant abdominal wall hernia or hematoma. No evidence of bowel injury. There is deformity of anterior superior aspect of T12 vertebral body with question minimal loss of height anteriorly and an associated end plate deformity superiorly. Findings are of uncertain age, acute anterior compression not excluded. No other suspicious findings for fracture on scanning of the thoracic or lumbar region. IMPRESSION: No evidence of acute injury of the chest, abdomen, or pelvis. T12 minimal anterior compression deformity of uncertain age, acute fracture not excluded. Lab Data Lab results reviewed: Yes I reviewed the patient's lab results. Labs: Laboratory Tests Range/Units 02/17/21 02/17/21 07:40 07:40 WBC (4.4-10.8) 10^3/uL 10.12 RBC (4.36-5.78) 10^6/uL 5.20 Hgb (13.5-17.5) g/dL 16.1 Hct (40.0-50.0) % 47.9 MCV (80-95) fL 92.1 MCH (27.0-33.0) pg 31.0 MCHC (32.0-36.0) % 33.6 RDW (11.8-14.1) % 12.8 Plt Count (130-400) 10^3/uL 304 MPV (8.0-11.0) fL 11.1 H Immature Gran % 0.3 Neutrophils % 63.6 Lymphocytes % 26.1 Monocytes % 8.4 Eosinophils % 1.1 Basophils % 0.5 Nucleated RBC % % 0 Absolute Neutrophils (1.2-6.7) 10^3/uL 6.44 Absolute Lymphocytes (1.2-3.4) 10^3/uL 2.64 Absolute Monocytes (0.1-0.8) 10^3/uL 0.85 H Absolute Eosinophils (0.0-0.7) 10^3/uL 0.11 Absolute Basophils (0.0-0.2) 10^3/uL 0.05 Sodium (136-145) mmol/L 143 Potassium (3.5-5.1) mmol/L 4.0 Chloride (98-107) mmol/L 105 Carbon Dioxide (21.0-32.0) mmol/L 30.9 Anion Gap (3-11) mmol/L 7.1 BUN (7-18) mg/dL 14 Creatinine (0.70-1.30) mg/dL 1.0 Estimated GFR/1.73 m2 (mL/min/1.73m2) >= 60.00 Glucose (74-106) mg/dL 136 H Calcium (8.5-10.1) mg/dL 9.2 Magnesium (1.8-2.4) mg/dL 2.1 Total Bilirubin (0.2-1.0) mg/dL 0.5 AST (15-37) U/L 75 H ALT (16-63) U/L 34 Alkaline Phosphatase (46-116) U/L 113 Troponin I (<0.06) ng/mL 4.16 H* Total Protein (6.4-8.2) g/dL 7.5 Albumin (3.4-5.0) g/dL 4.2 ECG Data Attestation: I personally reviewed and interpreted this ECG (s) as follows: Interpretation: #1 -- Rate of 72, sinus, [address] elevation in 2, 3 and aVF. Q waves noted in inferior leads. Less than [address] depression noted in 1 and aVL. #2 -- Rate of 68, sinus, [address] elevation in lead III, less than [address] elevation in 2 and aVF. Q waves noted in inferior leads. Less than [address] depression in 1 and aVL. #3 -- RIGHT SIDED EKG -- Rate of 68, sinus, [address] elevation in 2 and aVF, [address] ovation in lead III. Less than [address] depression in 1 and aVL. T wave inversions in V4 through V6. HPI General Mode of arrival: ambulatory. Date/Time Provider Initiated Documentation: 02/17/21 07:34. Limitations to Documentation: no limitations. Information obtained by: patient. HPI Narrative: Patient is a 80-year-old male with a history of alcohol abuse, anxiety, depression, hypertension, hyperlipidemia, GERD, sleep apnea presents for right-sided chest pain since yesterday. Patient states he had a mechanical fall 1 week ago in which she was walking quickly around a table and slipped and hit his right upper and mid back on the floor. He states he also did hit his head and had a laceration with bleeding but states it has healed. He denies any loss of consciousness, headache or vomiting. He states the right-sided chest pain is worse with deep breaths and movement. He last took Aleve yesterday without relief. He denies any shortness of breath, dizziness, cough, abdominal pain, nausea, vomiting or diarrhea. He denies any injury to his arms or legs. He states he has chronic neck and back pain and states his lower back is worse than usual since the fall. He denies any worsening of his neck pain since the fall. Related Data Home Medications Medication Instructions Recorded Confirmed Stelara 45 mg SQ q3 months 12/23/15 02/17/21 cannabidiol 100 mg/mL oral solution 100 mg PO BID PRN ml 07/03/18 02/17/21 omeprazole 20 mg tablet,delayed 20 mg PO DAILY PRN #90 tab-cap 02/11/20 02/17/21 release lisinopril 20 mg tablet 20 mg PO DAILY #90 tab-cap 01/02/21 02/17/21 Previous Rx's Medication Instructions Recorded omeprazole 20 mg tablet,delayed 20 mg PO DAILY PRN #90 tab-cap 02/11/20 release lisinopril 20 mg tablet 20 mg PO DAILY #90 tab-cap 01/02/21 Allergies Allergy/AdvReac Type Severity Reaction Status Date / Time latex Allergy Mild RASH Verified 02/17/21 07:52 epinephrine AdvReac Intermediate Totally Verified 02/17/21 07:52 wires me bupropion HCl AdvReac It Verified 02/17/21 07:52 [From Wellbutrin SR] flipped me out MOLDS AND SMUTS Allergy Unknown Uncoded 02/17/21 07:52 General Stated Complaint: Chest Pain HAL: 3 Review of Systems All systems reviewed & are unremarkable except as noted in HPI and below Constitutional Constitutional: Reports as per HPI, Denies chills and Denies fever(s) Eyes Eyes: Denies blurry vision ENT Ears, Nose, Mouth, and Throat: Denies dizziness, Denies sore throat and Denies throat swelling Cardiovascular Cardiovascular: Reports chest pain and Denies dyspnea Respiratory Respiratory: Denies cough and Denies dyspnea Gastrointestinal Gastrointestinal: Denies abdominal pain, Denies diarrhea and Denies vomiting Genitourinary Genitourinary: Denies hematuria and Denies dysuria Musculoskeletal Musculoskeletal: Reports back pain and Denies numbness Integumentary/Breasts Skin/Breast: Denies lesions and Denies rash Neurologic Neurologic: Denies dizziness, Denies localized weakness and Denies numbness Allergic/Immunologic Allergic/Immunologic: Denies throat swelling [facility] Medical History (Updated 02/17/21 @ 09:29 by Neisha Fong DO) Actinic keratosis Alcohol intake above recommended sensible limits about 6/week now; in 2007 was 2-3x's/week, 3-4 drinks Amaurosis fugax (12/03/15) Anxiety unresolved grief; chronic benzo. usage Benign prostatic hyperplasia (10/23/12) Blood glucose abnormal elevated FBS; family Hx of DM Cervical disc prolapse with radiculopathy Chronic rhinitis (06/07/13) Depressive disorder Diaphoresis Disorder of liver 08/22/12 Partner w/Hep C; Hepatic cysts; h/o ETOH use 10/23/12--elevated LDH Diverticulosis Drug use disorder chronic benzo use Dupuytren's contracture of left hand (12/28/16) [facility]-LEFT TRACY AND RING PLUS SMALL FINGER Elev transaminase/LDH (10/23/12) Esophageal reflux S/P Hpylori treatment; S/P upper GI which was normal Essential hypertension GERD (gastroesophageal reflux disease) HTN (hypertension) Hyperlipidemia elevated LDL and spinal stenosis Impacted cerumen 07/18/14 Impacted cerumen 06/07/13 Knee pain (05/14/14) Left knee; close to needing replacement Lumbar radiculopathy, chronic (11/11/14) MRI 2015: 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 Multiple nevi VERÓNICA (obstructive sleep apnea) Psoriatic arthritis on Embrel, followed by Shoulder pain, right (05/14/14) Sleep disorder unable to use CPAP Weight loss Surgical History (Updated 05/02/18 @ 14:19 by Chantell Russo) STANLEY REMOVAL B/L Appendectomy Arthroplasty of knee B/L Colonoscopy - MAC (08/23/16) Extraction of cataract 9/19/16 LEFT EYE; 01/19/16 RIGHT EYE Finger surgery H/O arthroscopy of knee bilateral H/O cataract removal with insertion of prosthetic lens 01/05/16 O.S.-01-05-2016, O.D.-01-19-2016 H/O knee surgery patella repair (lateral release) laminectomy (~1977) exploration;L4-5; DR. SANCHEZ @ [facility] [place] PATELLA REPAIR LATERNAL RELEASE S/P appendectomy S/P laminectomy exploration; L4-5; [facility] [place]; Dr. Sanchez Family History (Updated 02/15/20 @ 11:30 by Sree Ramirez) Mother , AGE 93 No problems noted. Father , AGE 56 No problems noted. Sister , AGE 49 Lymphoma Maternal Grandfather Diabetes Maternal Grandmother Alzheimer disease Paternal Grandmother No problems noted. Social History (Updated 02/15/20 @ 11:29 by Sree Ramirez) Smoking/Tobacco Use Status: Never Smoking risk assessment performed?: Yes Alcohol Intake: current Alcohol Intake frequency: a few times a month Alcohol type: beer Drug use: Occasionally Substance use type: marijuana Caregiver/Support person: No Household members: none Housing: house Communication Needs: None Do you need help understanding health information?: Rarely Pets and animals: Yes Pets and animals: cat(s) Sexually active: Yes Do you think of yourself as: straight/heterosexual Current gender identity: male What is your relationship status?: How often do you talk on the phone with friends or family?: once per week How often do you get together with friends or relatives?: never How often do you attend pentecostalism or rastafari services?: 1-3 times per year Do you belong to any clubs or organized social groups?: no Panel score (0-1 are the most socially isolated patients): 0 What type of physical activity do you participate in: weight lifting Duration: 45-60 minutes/day Frequency: 3-4 times per week Betsy/Pentecostalism: Anabaptist Special betsy needs: No Seatbelt use: always Drive intox or ride w/intox 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 3 cm healing laceration with crusted erosion approximately 4 mm in width. No active bleeding. No signs of surrounding erythema, edema, induration or fluctuance. No active bleeding or drainage. No surrounding crepitus or step-off. Ears: hearing grossly normal bilaterally and external ears normal General nose exam: external nose normal Eyes General: appearance normal, both eyes and all related structures Pupils: PERRL EOM: EOM intact bilaterally Neck Neck: normal visual inspection and No submandibular swelling Lymphatic: no lymphadenopathy noted Chest Chest: normal inspection of the chest and no tenderness Chest/axillae images: 1. Tenderness to palpation right anterior lateral inferior ribs. No surrounding crepitus, ecchymosis, erythema or step-off. Resp Effort & Inspection: normal respiratory effort and able to speak in complete sentences Auscultation: clear to auscultation bilaterally Cardio Rate: regular rate Rhythm: regular rhythm GI Inspection: normal to inspection Palpation: soft, not firm, not rigid and tender in the RUQ Auscultation: hypoactive bowel sounds Back/Spine/Pelvis Cervical Spine: No cervical spinal tenderness Thoracic/Lumbar Spine: thoracic and lumbar spine normal to inspection, thoracic spinal tenderness and lumbar spinal tenderness Pelvis: no pain with anterior-posterior compression Skin General skin exam: no rashes or lesions noted Neuro General: patient alert, patient awake and patient oriented x3 Cognition: normal cognition Speech: speech normal Motor: muscle tone normal throughout Sensory Exam: no sensory deficits noted Extrem General: normal to inspection, full ROM, capillary refill normal, no calf tenderness bilaterally and no edema Psych Appearance: grossly normal Mental Status: mental status grossly normal Speech and Movement: speech and movement normal Affect: normal affect Course Vital Signs Vital signs: Vital Signs Temperature 98.2 F 02/17/21 07:39 Pulse 79 02/17/21 07:39 Respiratory Rate 15 02/17/21 07:39 Blood Pressure 177/91 H 02/17/21 07:39 Pulse Oximetry 98 02/17/21 07:39 Temperature 98.2 F 02/17/21 07:39 Temperature Source Temporal Artery Scan 02/17/21 07:39 Pulse 79 02/17/21 07:39 Respiratory Rate 13 02/17/21 07:45 Respiratory Effort Non-Labored 02/17/21 07:45 Respiratory Depth Normal 02/17/21 07:45 Respiratory Pattern Normal 02/17/21 07:45 Blood Pressure 177/91 H 02/17/21 07:39 Pulse Oximetry 98 02/17/21 07:39 Oxygen Delivery Method Room Air 02/17/21 07:39 Oxygen Flow Rate 0 02/17/21 07:39 Pain Level 10 02/17/21 07:45 Critical Care Time Critical Care Time Critical Care Time: Yes Total Critical Care Time: 60 Attestation: I spent 60 minutes of critical care time with this patient. This does not include time spent on separately reported billable procedures. PAWSS Have you Been Recently Intoxicated or Drunk Within the Last 30 days?: No Have you Ever Experienced Previous Episodes of Alcohol Withdrawal?: No Have you ever Experienced Withdrawal Seizures?: No Have you ever Experienced Delirium Tremens(DT)s?: No Have you ever undergone Alcohol Rehabilitation Treatment (i.e, inpt ot outpatient treatment programs)?: No Have you ever Experienced Blackouts?: No Have you ever Combined Alcohol with other Downers within the last 90 days?: No Have you ever Combined Alcohol with any other Substance of Abuse during the last 90 days?: No Positive Blood Alcohol level on Presentation? [PCS.BAL]: No Evidence of Increased Autonomic Activity (i.e. HR>120, tremor, sweating, agitation, nausea)?: No Result: 0
[2021-02-17 08:10] LABS: Abs Immature Grans 0.03 10^3/uL (0.0-0.06); Absolute Basophil Count 0.05 10^3/uL (0.0-0.2); Absolute Eosinophil Count 0.11 10^3/uL (0.0-0.7); Absolute Lymphocyte Count 2.64 10^3/uL (1.2-3.4); Absolute Monocyte Count 0.85 10^3/uL (0.1-0.8); Absolute Neutrophil Count 6.44 10^3/uL (1.2-6.7); Basophils % 0.5; Eosinophils % 1.1; HCT 47.9 % (40.0-50.0); HGB 16.1 g/dL (13.5-17.5); Immature Grans % 0.3; Lymphocytes % 26.1; MCHC 33.6 % (32.0-36.0); MCV 92.1 fL (80-95); MPV 11.1 fL (8.0-11.0); Monocytes % 8.4; Neutrophils % 63.6; Nucleated RBC 0 %; Platelet Count 304 10^3/uL (130-400); RDW 12.8 % (11.8-14.1); RDW-SD 43.6 fL; WBC 10.12 10^3/uL (4.4-10.8)
--- NOTE | 2021-02-17 08:15 | DI.CT_ITS ---
Exam(s) CT THORACIC LUMBAR SPINE REC CT CHEST PE ABD PELVIS W EXAM: CT CHEST PE ABD PELVIS W TECHNIQUE: CT examination of the chest, abdomen, and pelvis was performed with bolus infusion of 100 cc of Omnipaque 350. 3D reconstructions were obtained and interpreted the chest abdomen pelvis CT a s well as the additional thoracic and lumbar spine reconstruction. COMPARISON: CT CT CHEST PE CTA from 07/16/[address] THORACIC LUMBAR SPINE REC from 02/17/[address] THORACIC LUMBAR SPINE REC from 02/17/2021 FINDINGS: There is no evidence of a thoracic vascular injury. The lungs are clear. No pneumothorax or pleural effusion. No mediastinal hematoma. No adenopathy in the chest. Tracheobronchial tree appears intact. The liver, spleen, and pancreas appear normal except for incidental apparent hepatic cysts period. G allbladder and bile ducts are normal. Adrenals and kidneys are unremarkable. No evidence of urinary tract injury or obstruction. No abdominal or pelvic vascular injury seen. No abdominal or pelvic adenopathy. No significant abdomi nal wall hernia or hematoma. No evidence of bowel injury. There is deformity of anterior superior aspect of T12 vertebral body with question minimal loss of he ight anteriorly and an associated end plate deformity superiorly. Findings are of uncertain age, acu te anterior compression not excluded. No other suspicious findings for fracture on scanning of the t horacic or lumbar region. IMPRESSION: No evidence of acute injury of the chest, abdomen, or pelvis. T12 minimal anterior compression deformity of uncertain age, acute fracture not excluded. RADIATION DOSE DELIVERED: 1362.3 mGy.cm Total DLP 1362.3 mGy.cm Total DLP 16.64 mGy CTDIvol DATA REPOSITORY: All CT scans at this facility are submitted to the National Radiology Data Registry (NRDR) Dose Index Registry (DIR) with the [employer] ([employer]). RADIATION OPTIMIZATION: All CT scans at this facility use at least one of these dose optimization te chniques: automated exposure control; mA and/or kV adjustment per patient size (includes targeted exa ms where dose is matched to clinical indication); or iterative reconstruction.
[2021-02-17 08:25] LABS: ALT 34 U/L (16-63); AST 75 U/L (15-37); Albumin 4.2 g/dL (3.4-5.0); Alkaline Phosphatase 113 U/L (46-116); Anion Gap 7.1 mmol/L (3-11); BUN 14 mg/dL (7-18); Bilirubin, Total 0.5 mg/dL (0.2-1.0); CO2 30.9 mmol/L (21.0-32.0); Calcium 9.2 mg/dL (8.5-10.1); Chloride 105 mmol/L (98-107); Glucose 136 mg/dL (74-106); Magnesium 2.1 mg/dL (1.8-2.4); Sodium 143 mmol/L (136-145); Total Protein 7.5 g/dL (6.4-8.2)
[2021-02-17 08:26] LABS: Troponin I 4.16 ng/mL (<0.06)
--- NOTE | 2021-02-17 08:35 | DI.CT_ITS ---
Exam(s) CT HEAD CERVICAL SPINE WO EXAM: CT HEAD CERVICAL SPINE WO COMPARISON: No exams were available for comparison FINDINGS: CT examination of the cervical spine was performed without contrast administration. There is no evidence of acute cervical spine fracture or dislocation. Intervertebral disc spaces are well maintained. Tracheolaryngeal structures appear intact. No cervical mass or adenopathy. Noncontrast cranial CT was performed. There was significant motion artifact which degrades images ob tained through the middle and posterior fossa. Ventricular system is normal in appearance. No evidence of acute intracranial hemorrhage, mass effect, or midline shift. No calvarial fracture. The orbital and temporal bone structures appear intact. Visualized mastoid air cells and paranasal sinuses appear clear. IMPRESSION: No evidence of acute cervical spine injury. No evidence of acute intracranial injury. RADIATION DOSE DELIVERED: 1,641.53mGy.cm Total DLP 1,641.53mGy.cm Total DLP 27.94mGy CTDIvol DATA REPOSITORY: All CT scans at this facility are submitted to the National Radiology Data Registry (NRDR) Dose Index Registry (DIR) with the [employer] (ACR). RADIATION OPTIMIZATION: All CT scans at this facility use at least one of these dose optimization te chniques: automated exposure control; mA and/or kV adjustment per patient size (includes targeted exa ms where dose is matched to clinical indication); or iterative reconstruction.
[2021-02-17] MEDS: Omnipaque 350 MG/ML 100 ML BTL IJ (08:41)
[2021-02-17] MEDS: Normal Saline - Diluent 50 ML VIAL IV (08:43)
--- NOTE | 2021-02-17 09:00 | RT.EKG_ITS ---
APPROVED REPORT Exam: Resting ECG Reason for Exam: RIGHT SIDED Patient Location: E HR:68 bpm ECG Measurements Heart Rate 68 AXIS AL 196 P 51 QRSd 95 QRS 29 QT 412 T 19 QTc 439 Conclusion Sinus rhythm...normal P axis, V-rate 60- 99 Anterolateral infarct, age indeterminate...Q >35mS, flat/neg T, V3-V6,I,aVL Right sided EKG: Sinus. 1mm ST elevation in II, aVF, 2mm ST elevation in III. Less than 1mm ST depression in I, aVL. Q waves in inferior leads. T wave inversions in V4-6. I have reviewed and interpreted ECG and agree with software generated interpretation.
--- NOTE | 2021-02-17 09:00 | RT.EKG_ITS ---
APPROVED REPORT Exam: Resting ECG Reason for Exam: chest pain Patient Location: E HR:68 bpm ECG Measurements Heart Rate 68 AXIS AZ 204 P 61 QRSd 100 QRS 39 QT 417 T 36 QTc 445 Conclusion Sinus rhythm...normal P axis, V-rate 60- 99. Sinus. Less than 1mm ST elevation in II, aVF 1mm ST elevation in III. Q waves in inferior leads. I have reviewed and interpreted ECG and agree with software generated interpretation.
[2021-02-17] MEDS: Lidocaine 5% Patch 1 PATCH TP (09:16)
[2021-02-17] MEDS: Normal Saline 1,000 ML 1000 ML IV (09:17)
[2021-02-17] MEDS: Aspirin 81 MG CHEW (09:28)
[2021-02-17] MEDS: Clopidogrel 300 MG TAB 600 MG PO (09:39)
[2021-02-17] MEDS: nitroGLYcerin in D5W 50 MG/250 ML BTL IV (09:47)
[2021-02-17 09:57] LABS: INR 1.1 (0.9-1.1); PTT Activated 27.9 sec (21.0-27.5); Prothrombin Time 11.4 sec (9.3-11.0)
== END 2021-02-17 10:23 | disposition short-term general hospital (02) ==
PROVIDERS: Emergency Provider Physician Assistant; PCP Family Medicine
DX: I21.4 Non-ST elevation (NSTEMI) myocardial infarction (principal); M54.6 Pain in thoracic spine; S01.01XA Laceration without foreign body of scalp, initial encounter; W18.39XA Other fall on same level, initial encounter; R93.7 Abnormal findings on diagnostic imaging of other parts of musculoskeletal system
CPT/HCPCS: 36415; 71275; 74177; 80053; 93005; 96361; 96365; 96368; 96375; 96376; 99291; 70450; 72125; 83735; 84484; 85025; 85610; 85730; 93010; J3490

== ENCOUNTER 2021-06-04 02:40 | Outpatient (CLI) | payer MEDICARE, SELFPAY ==
[2021-06-04 16:06] LABS: Hemoglobin A1C 5.5 % (<5.7)
[2021-06-04 18:14] LABS: ALT 41 U/L (16-63); AST 23 U/L (15-37); Albumin 4.4 g/dL (3.4-5.0); Alkaline Phosphatase 68 U/L (46-116); Anion Gap 9.6 mmol/L (3-11); BUN 13 mg/dL (7-18); Bilirubin, Total 0.7 mg/dL (0.2-1.0); CO2 28.4 mmol/L (21.0-32.0); CREATININE 0.9 mg/dL (0.70-1.30); Calcium 9.5 mg/dL (8.5-10.1); Calculated LDL 39 mg/dL (<100); Chloride 103 mmol/L (98-107); Cholesterol 107 mg/dL (<200); Glucose 100 mg/dL (74-106); HDL Cholesterol 59 mg/dL (40-60); Potassium 4.3 mmol/L (3.5-5.1); Sodium 141 mmol/L (136-145); Total Protein 7.3 g/dL (6.4-8.2); Triglyceride 48 mg/dL (<150)
== END 2021-06-04 02:41 | disposition home or self-care (01) ==
LOC: LBO 02:40
PROVIDERS: PCP Family Medicine; Visit Provider Family Medicine
DX: E11.9 Type 2 diabetes mellitus without complications (principal); E78.5 Hyperlipidemia, unspecified; I10 Essential (primary) hypertension; I25.10 Atherosclerotic heart disease of native coronary artery without angina pectoris; G45.3 Amaurosis fugax
CPT/HCPCS: 36415; 80053; 80061; 83036

== ENCOUNTER 2022-03-16 08:56 | Outpatient (CLI) | payer MEDICARE, SELFPAY ==
--- NOTE | 2022-03-16 08:45 | RT.EKG_ITS ---
APPROVED REPORT Exam: Resting ECG Reason for Exam: CAD Patient Location: O HR:77 bpm ECG Measurements Heart Rate 77 AXIS LA 198 P 58 QRSd 87 QRS 0 QT 399 T -9 QTc 452 Conclusion Sinus rhythm...normal P axis, V-rate 50- 99 Ventricular premature complex...V complex w/ short R-R interval Probable left atrial enlargement...P >50mS, <-0.10mV V1 Inferior infarct, age indeterminate...Q>35mS, T neg, II III aVF
== END 2022-03-16 08:57 | disposition home or self-care (01) ==
LOC: DI.CARD 08:56
PROVIDERS: PCP Family Medicine; Visit Provider Internal Medicine Cardiovascular Disease
DX: I21.4 Non-ST elevation (NSTEMI) myocardial infarction (principal); I25.10 Atherosclerotic heart disease of native coronary artery without angina pectoris; R94.31 Abnormal electrocardiogram [ECG] [EKG]; I49.3 Ventricular premature depolarization; I25.2 Old myocardial infarction
CPT/HCPCS: 93010

== ENCOUNTER → 2022-03-16 12:53 | Outpatient (BNVA) | payer MEDICARE, SELFPAY | PROVIDERS: PCP Family Medicine; Referring Provider Family Medicine; Visit Provider Internal Medicine Cardiovascular Disease | DX: I25.10 Atherosclerotic heart disease of native coronary artery without angina pectoris (principal); I10 Essential (primary) hypertension; E78.5 Hyperlipidemia, unspecified; I25.2 Old myocardial infarction; Z95.5 Presence of coronary angioplasty implant and graft | CPT/HCPCS: 93005; 99203; 99214 ==

== ENCOUNTER 2022-10-08 02:21 | Outpatient (CLI) | payer MEDICARE, SELFPAY ==
[2022-10-08 14:03] LABS: Calculated LDL 127 mg/dL (<100); Cholesterol 204 mg/dL (<200); HDL Cholesterol 63 mg/dL (40-60); Triglyceride 73 mg/dL (<150)
== END 2022-10-08 02:22 | disposition home or self-care (01) ==
PROVIDERS: PCP Family Medicine; Visit Provider Internal Medicine Cardiovascular Disease
DX: I25.10 Atherosclerotic heart disease of native coronary artery without angina pectoris (principal); I25.2 Old myocardial infarction
CPT/HCPCS: 36415; 80061

== ENCOUNTER → 2022-10-14 13:35 | Outpatient (BNVA) | payer MEDICARE, SELFPAY | PROVIDERS: PCP Family Medicine; Referring Provider Family Medicine; Visit Provider Internal Medicine Cardiovascular Disease | DX: E78.5 Hyperlipidemia, unspecified (principal); I25.10 Atherosclerotic heart disease of native coronary artery without angina pectoris; I10 Essential (primary) hypertension | CPT/HCPCS: 99214 ==

== ENCOUNTER → 2023-01-05 02:09 | Outpatient (CLI) | payer MEDICARE, SELFPAY ==
--- NOTE | 2023-01-05 13:24 | DI.RAD_ITS ---
Exam(s) XR KNEE LT 3V AP,LAT,OZ EXAM: XR KNEE LT 3V AP,LAT,OZ CLINICAL HISTORY: b/l knee pain.M26.561,M25.562. TECHNIQUE: 2D digital imaging was performed of the left knee. Three images were obtained. AP, late ral and PA tunnel views were obtained. COMPARISON: CR LEFT KNEE COMPLETE from 06/13/2007 FINDINGS: BONES: No acute fracture is present. No bony destructive lesion is seen. JOINTS: There is narrowing of the medial femoral tibial joint. Osteophytes are seen at the posterior patella. There is chondrocalcinosis seen in the medial femoral tibial joint. There is a small join t effusion. No loose body. SOFT TISSUE: Atherosclerosis is present. IMPRESSION: Degenerative changes of the left knee. DATA REPOSITORY: RADIATION DOSE DELIVERED:
--- NOTE | 2023-01-05 13:24 | DI.RAD_ITS ---
Exam(s) XR KNEE RT 3V AP,LAT,OZ EXAM: XR KNEE RT 3V AP,LAT,OZ CLINICAL HISTORY: b/l knee pain,M25.561,M26.562. TECHNIQUE: 2D digital imaging was performed of the right knee. Three views obtained. AP, lateral an d PA tunnel views were obtained. COMPARISON: CR BONE LENGTH from 06/13/2007 FINDINGS: BONES: No acute fracture is present. No bony destructive lesion is seen. JOINTS: There is joint space narrowing in the medial femoral tibial joint space. There is periarticu lar spurring of the posterior patella. Chondrocalcinosis is seen in the femoral tibial joint. There is a small joint effusion. SOFT TISSUE: Atherosclerosis is present. IMPRESSION: Degenerative changes of the right knee. DATA REPOSITORY: RADIATION DOSE DELIVERED:
== END ==
PROVIDERS: PCP Family Medicine; Visit Provider Family Medicine
DX: M17.0 Bilateral primary osteoarthritis of knee
CPT/HCPCS: 73562

== ENCOUNTER 2023-01-05 03:59 | Outpatient (CLI) | payer MEDICARE, SELFPAY ==
[2023-01-05 14:08] LABS: ALT 38 U/L (16-63); AST 20 U/L (15-37); Albumin 3.8 g/dL (3.4-5.0); Alkaline Phosphatase 66 U/L (46-116); Anion Gap 4.5 mmol/L (3-11); BUN 10 mg/dL (7-18); Bilirubin, Total 0.6 mg/dL (0.2-1.0); CO2 31.5 mmol/L (21.0-32.0); CREATININE 0.9 mg/dL (0.70-1.30); Calcium 9.1 mg/dL (8.5-10.1); Calculated LDL 46 mg/dL (<100); Chloride 102 mmol/L (98-107); Cholesterol 140 mg/dL (<200); Estimated GFR 86.34 (mL/min/1.73m2); Glucose 137 mg/dL (74-106); HDL Cholesterol 72 mg/dL (40-60); Potassium 4.2 mmol/L (3.5-5.1); Sodium 138 mmol/L (136-145); Total Protein 7.3 g/dL (6.4-8.2); Triglyceride 114 mg/dL (<150); Vitamin B12 417 pg/mL (193-986)
== END 2023-01-05 04:00 | disposition home or self-care (01) ==
LOC: LBO 03:59
PROVIDERS: PCP Family Medicine; Visit Provider Family Medicine
DX: I10 Essential (primary) hypertension (principal); K21.9 Gastro-esophageal reflux disease without esophagitis; Z79.899 Other long term (current) drug therapy
CPT/HCPCS: 36415; 80053; 80061; 82607

== ENCOUNTER → 2023-07-14 13:05 | Outpatient (BNVA) | payer MEDICARE, SELFPAY | PROVIDERS: PCP Family Medicine; Visit Provider Internal Medicine Cardiovascular Disease | DX: I25.10 Atherosclerotic heart disease of native coronary artery without angina pectoris (principal); E78.5 Hyperlipidemia, unspecified; I10 Essential (primary) hypertension | CPT/HCPCS: 99213 ==

== ENCOUNTER → 2023-09-05 10:07 | Outpatient (BNVA) | payer MEDICARE, SELFPAY | PROVIDERS: PCP Family Medicine; Referring Provider Family Medicine; Visit Provider Student in an Organized Health Care Education/Training Program | DX: M17.11 Unilateral primary osteoarthritis, right knee (principal); M17.12 Unilateral primary osteoarthritis, left knee; M11.261 Other chondrocalcinosis, right knee; M11.262 Other chondrocalcinosis, left knee | CPT/HCPCS: 99215 ==

== ENCOUNTER 2023-10-18 03:25 | Outpatient (CLI) | payer MEDICARE, SELFPAY ==
[2023-10-18 12:30] LABS: Abs Immature Grans 0.03 10^3/uL (0.0-0.06); Absolute Basophil Count 0.05 10^3/uL (0.0-0.2); Absolute Eosinophil Count 0.17 10^3/uL (0.0-0.7); Absolute Lymphocyte Count 2.23 10^3/uL (1.2-3.4); Absolute Monocyte Count 0.53 10^3/uL (0.1-0.8); Absolute Neutrophil Count 5.52 10^3/uL (1.2-6.7); Basophils % 0.6 %; HCT 46.1 % (40.0-50.0); HGB 15.3 g/dL (13.5-17.5); Immature Grans % 0.4 %; Lymphocytes % 26.1 %; MCH 31.2 pg (27.0-33.0); MCHC 33.2 % (32.0-36.0); MCV 94 fL (80-95); MPV 11.2 fL (8.0-11.0); Monocytes % 6.2 %; Neutrophils % 64.7 %; Platelet Count 206 10^3/uL (130-400); RBC 4.91 10^6/uL (4.36-5.78); RDW-SD 44.2 fL; WBC 8.53 10^3/uL (4.4-10.8)
[2023-10-19 10:47] LABS: Lyme Ab w Rflx to Lyme Confirm Negative (Negative)
[2023-10-21 21:10] LABS: Anaplasma phagocytophilum Negative (Negative); B. miyamotoi PCR Negative (Negative); Babesia divergens/MO-1 Negative (Negative); Babesia duncani Negative (Negative); Babesia microti Negative (Negative); Ehrlichia chaffeensis Negative (Negative); Ehrlichia ewingii/canis Negative (Negative); Ehrlichia muris eauclairensis Negative (Negative)
== END 2023-10-18 03:26 | disposition home or self-care (01) ==
LOC: LOS 03:26
PROVIDERS: PCP Family Medicine; Visit Provider Physician Assistant
DX: R51.9 Headache, unspecified (principal)
CPT/HCPCS: 36415; 87798; 85025; 86618

== ENCOUNTER 2023-12-01 02:32 | Outpatient (CLI) | payer OTHER, SELFPAY ==
--- NOTE | 2023-12-01 | DI.CT_ITS ---
Exam(s) CT FACIAL W EXAM: CT FACIAL W CLINICAL HISTORY: Mandibular bony ridge mass, M27.9,[id number]. TECHNIQUE: Imaging Protocol: Axial computed tomography images with coronal and sagittal reformatted images were created and reviewed. IV contrast: 100 mL Omnipaque 350 COMPARISON: None FINDINGS: MAXILLOFACIAL CT SCAN: There is no evidence of facial fractures nor fluid in the visualized paranasal sinuses. There is no evidence of orbital blowout fracture. Nasopharynx: Unremarkable. Symmetrical. Oropharynx: Unremarkable uvula midline. No evidence of tonsillar abscess. No prevertebral soft tiss ue swelling. CELI DENTAL: There are no significant periapical lucencies. No evidence fracture in mandible and maxi llary bones. TM joints appear unremarkable. On the medial aspect of the right mandibular body there is an asymmetric undulating dense cortical bone protuberance which measures approximately 2.3 cm AP x 0.7 cm wide x 1.2 cm craniocaudal, isodense to compact bone. 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 There is similar but less prominent findings evident on the medial aspect of the opposite-left side body of the mandible. There are no lytic lesions evident . Hypopharynx: Epiglottis in folliculitis appear unremarkable. Aryepiglottic folds unremarkable. Vocal cords: Unremarkable and unremarkable partially visualized subglottic airway. Thyroid gland: Only partially included in the field of view. No nodules evident. Lymph nodes: No significant lymphadenopathy evident on either side of the neck within the field of vi ew of this study. Salivary glands: Submandibular glands unremarkable. Parotid glands unremarkable. Vascular: There is calcified plaque at the carotid bifurcations and proximal ICAs bilaterally. IMPRESSION: On the medial aspect cortex of body of the right-side of the mandible there is an undulating very den se sclerotic bone lesion measuring approximately 2.3 cm AP x 0.7 cm wide x 1.2 cm craniocaudal. Caty lar but less prominent finding is seen on the opposite-left side. 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 RADIATION OPTIMIZATION: All CT scans at this facility use at least one of these dose optimization te chniques: automated exposure control; mA and/or kV adjustment per patient size (includes targeted exa ms where dose is matched to clinical indication); or iterative reconstruction.
[2023-12-01 12:33] LABS: BUN 14 mg/dL (7-18); CREATININE 0.8 mg/dL (0.70-1.30); Estimated GFR 88.91 (mL/min/1.73m2)
[2023-12-01] MEDS: Normal Saline - Diluent 50 ML VIAL IJ (13:13)
[2023-12-01] MEDS: Omnipaque 350 MG/ML 100 ML BTL IJ (13:14)
== END 2023-12-01 02:52 ==
PROVIDERS: PCP Family Medicine; Visit Provider Otolaryngology
DX: M89.28 Other disorders of bone development and growth, other site (principal)
CPT/HCPCS: 84520; 70487; 82565; J3490

== ENCOUNTER → 2024-02-03 10:03 | Outpatient (BNVA) | payer MEDICARE, SELFPAY | PROVIDERS: PCP Family Medicine; Visit Provider Internal Medicine Cardiovascular Disease | DX: R00.2 Palpitations (principal); I25.10 Atherosclerotic heart disease of native coronary artery without angina pectoris | CPT/HCPCS: 99214 ==

== ENCOUNTER 2024-02-05 14:40 | Emergency (ER) | payer MEDICARE, SELFPAY ==
[2024-02-05 14:58] VITALS: BP 164/79; PULSE 83; RESP 14; TEMP 36.8; O2SAT 95
--- NOTE | 2024-02-05 15:18 | W.ED.GENAD ---
Discharge Plan Disposition Patient Disposition: Home Condition: Stable Discharge Details Clinical Impression: Pain due to dental trauma, Essential hypertension, Hyperlipidemia, NSTEMI (non-ST elevated myocardial infarction), CAD (coronary artery disease) Primary Care Provider: Lalita Bernabe ED Provider: Yadira Royal Home Meds and New Rx's Prescriptions: New morphine 15 mg tablet 15 mg PO BID PRNQty: 7 0RF No Action cannabidiol 100 mg/mL solution 100 mg PO BID PRN fexofenadine 180 mg tablet 180 mg PO DAILY lisinopril [Zestril] 20 mg tablet 20 mg PO DAILY Qty: 90 4RF Stelara 45 MG/0.5 ML syringe 45 mg SQ q3 months Patient Comments: Rx'd by Dr. Jimenez. aj omeprazole 20 mg tablet,delayed release (DR/EC) 20 mg PO DAILY PRN (Reason: reflux) Qty: 90 3RF clonazepam 1 mg tablet 1 mg PO QHS PRN (Reason: insomnia) Qty: 36 1RF Rx Instructions: administer 30 minutes before bedtime. Three month supply atorvastatin 20 mg tablet 20 mg PO DAILY Qty: 90 3RF Discharge Instructions Instructions: Dental Pain ED Additional Instructions: You were seen in the emergency department today for evaluation of dental pain. In our department a full physical examination performed, you were offered a dental block but at this time have declined, and we have provided you with a short course of morphine for breakthrough pain. You should continue to optimize your Tylenol and ibuprofen, and keep your dental appointment as scheduled. Thank you for allowing us to be part of your care. HPI General Date/Time Provider Initiated Documentation: 02/05/24 14:48. Limitations to Documentation: no limitations. Information obtained by: patient and old records reviewed. HPI Narrative: HPI: This is an 83-year-old male patient presenting for evaluation of tooth pain. The patient reports that he has a right lower premolar, that he believes he bit down on something hard and has since had significant pain. He reports he has a history of bony overgrowth of the teeth in the past and is worried that he is starting to develop that as well. He has not noted any purulence, facial swelling, difficulty eating or drinking, fever or chills, or any other abnormalities. He has been managing his pain at home with Tylenol and NSAIDs. He has a dental appointment scheduled, but was hopeful for additional pain management as the pain is preventing him from sleeping at night. Exam: Gen: Awake and alert, in no apparent distress HEENT: Non-icteric sclera, face symmetrical and without swelling. The patient's tooth #29 does not have a large fracture but does have bony prominences on either side, no periapical abscesses noted. Tooth is tender to palpation during this provider's examination. Neck: Supple Lungs: No apparent respiratory distress, normal respiratory effort. CV: Appears well perfused Abdomen: Non-distended MSK: Moves 4 extremities without apparent limitation in ROM Skin: Visualized skin without rashes, cyanosis. Neuro: Normal Gait, no obvious focal deficits or facial asymmetry. Speaks in full, clear sentences. Psych: Appropriate for situation. MDM: This is a 83-year-old male patient presenting for evaluation of tooth pain. My differential includes but is not limited to tooth fracture, dental carry disease, I certainly considered early dental infection though there is no significant evidence of same on my physical examination. The patient is not recently status post procedure to suggest dry socket, has no evidence of deep space neck infection or facial infection. He is reassuringly hemodynamically appropriate, afebrile, and neuro intact. We did shared decision-making conversation regarding multimodal pain management, including nerve block which he has at this time declined. I provided him with a short course of oral morphine to supplement his Tylenol and NSAID use and encouraged him to use ice, and follow-up with his primary dentist as soon as possible. We discussed risks associated with narcotic use and and the patient is understanding. ED Course: At this time, the patient has had a full medical evaluation and is safe for discharge to home. They are hemodynamically stable, ambulatory, and tolerating PO. They are understanding of the follow-up plan and return precautions. They left our facility without incident. Yadira Royal MD Related Data Home Medications ?Medication ?Instructions ?Recorded ?Confirmed ustekinumab 45 mg/0.5 mL 45 mg SQ q3 months 12/23/15 02/05/24 subcutaneous syringe ([employer]) cannabidiol 100 mg/mL oral solution 100 mg PO BID PRN 07/03/18 02/05/24 omeprazole 20 mg tablet,delayed 20 mg PO DAILY PRN reflux #90 02/08/24 10/20/24 release tab-caps clonazepam 1 mg tablet 1 mg PO QHS PRN insomnia #36 tabs 09/13/23 02/05/24 atorvastatin 20 mg tablet 20 mg PO DAILY #90 tabs 10/03/23 02/05/24 fexofenadine 180 mg tablet 180 mg PO DAILY 01/05/24 02/05/24 lisinopril 20 mg tablet (Zestril) 20 mg PO DAILY #90 tab-caps 01/05/24 02/05/24 morphine 15 mg immediate release 15 mg PO BID PRN #7 tabs 02/05/24 tablet Previous Rx's ?Medication ?Instructions ?Recorded omeprazole 20 mg tablet,delayed 20 mg PO DAILY PRN reflux #90 05/26/23 release tab-caps clonazepam 1 mg tablet 1 mg PO QHS PRN insomnia #36 tabs 09/13/23 atorvastatin 20 mg tablet 20 mg PO DAILY #90 tabs 10/03/23 lisinopril 20 mg tablet (Zestril) 20 mg PO DAILY #90 tab-caps 01/05/24 morphine 15 mg immediate release 15 mg PO BID PRN #7 tabs 02/05/24 tablet Allergies Allergy/AdvReac Type Severity Reaction Status Date / Time latex Allergy Mild RASH Verified 02/05/24 15:01 minocycline Allergy Lungs Verified 02/05/24 15:01 filled up AEP epinephrine AdvReac Intermediate Totally Verified 02/05/24 15:01 wires me bupropion HCl (From AdvReac It Verified 02/05/24 15:01 Wellbutrin SR) flipped me out MOLDS AND SMUTS Allergy Unknown Rhinitis Uncoded 02/05/24 15:01 minocycline AdvReac Severe pneumonia Uncoded 02/05/24 15:01 General Stated Complaint: DentalOral HAL: 4 Course Vital Signs Vital signs: Vital Signs Temperature 36.8 C 02/05/24 14:58 Pulse 83 02/05/24 14:58 Respiratory Rate 14 02/05/24 14:58 Blood Pressure 164/79 H 02/05/24 14:58 Pulse Oximetry 95 02/05/24 14:58 Temperature 36.8 C 02/05/24 14:58 Temperature Source Oral 02/05/24 14:58 Pulse 83 02/05/24 14:58 Respiratory Rate 14 02/05/24 14:58 Blood Pressure 164/79 H 02/05/24 14:58 Blood Pressure Position Sitting 02/05/24 14:58 Pulse Oximetry 95 02/05/24 14:58 Oxygen Delivery Method Room Air 02/05/24 14:58 Oxygen Flow Rate 0 02/05/24 14:58 Pain Level 10 02/05/24 14:58 Medical Decision Making Quality:SDOH Health Related Social Needs: Health related social needs inadequate housing(Z59.1) Health related social needs details lack of money for surgeries his insurance doesn't pay for PFSH All Active Problems (Updated 02/05/24 @ 15:19 by Yadira Royal MD) Pain due to dental trauma (Acute) Chondrocalcinosis of knee (Acute) Bilateral primary osteoarthritis of knee (Acute) BILAT DEPO MEDROL 10/03/23 Thoracic compression fracture (Acute) Bilateral knee pain (Acute) Eye abnormalities (Acute) Chronic neck pain (Acute) CAD (coronary artery disease) (Chronic) NSTEMI (non-ST elevated myocardial infarction) (Acute) 02/17/21 to [facility] [place] with stent to RCA RH Back pain (Acute) Pain in Achilles tendon (Acute) Tendonitis of long head of biceps brachii of right shoulder (Acute) Bursitis of right shoulder (Acute) Arthritis of right shoulder region (Acute) Rotator cuff tear, right (Acute) Right shoulder pain (Acute) Axillary mass (Acute) Lipoma (Acute) Benign prostatic hyperplasia (Chronic 10/23/12) Sleep disorder (Chronic) unable to use CPAP Shoulder pain, right (Chronic 05/14/14) Psoriatic arthritis (Chronic) on Embrel, followed by Multiple nevi (Chronic) Lumbar radiculopathy, chronic (Chronic 11/11/14) MRI 2015: 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 Left tennis elbow (Chronic 09/27/16) Knee pain (Chronic 05/14/14) Left knee; close to needing replacement Hyperlipidemia (Chronic) elevated LDL and spinal stenosis Essential hypertension (Chronic) Esophageal reflux (Chronic) S/P Hpylori treatment; S/P upper GI which was normal Dupuytren's contracture of left hand (Chronic 12/28/16) [facility]-LEFT TRACY AND RING PLUS SMALL FINGER Diverticulitis of colon (Chronic 03/29/08) Depressive disorder (Chronic) Chronic rhinitis (Chronic 06/07/13) Cervical disc prolapse with radiculopathy (Chronic) Anxiety (Chronic) unresolved grief; chronic benzo. 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) Alcohol intake above recommended sensible limits with complication (Chronic 01/18/17) Actinic keratosis (Chronic) Medical History Diaphoresis Weight loss Alcohol intake above recommended sensible limits about 6/week now; in 2007 was 2-3x's/week, 3-4 drinks Blood glucose abnormal elevated FBS; family Hx of DM Drug use disorder chronic benzo use Disorder of liver 08/22/12 Partner w/Hep C; Hepatic cysts; h/o ETOH use 10/23/12--elevated LDH Impacted cerumen 06/07/13 Impacted cerumen 07/18/14 Elev transaminase/LDH (10/23/12) HTN (hypertension) GERD (gastroesophageal reflux disease) VERÓNICA (obstructive sleep apnea) Diverticulosis Surgical History H/O arthroscopy of knee bilateral S/P appendectomy H/O knee surgery patella repair (lateral release) S/P laminectomy exploration; L4-5; [facility] [place]; Dr. Sanchez H/O cataract removal with insertion of prosthetic lens 01/05/16 O.S.-01-05-2016, O.D.-01-19-2016 laminectomy (~1977) exploration;L4-5; DR. SANCHEZ @ [facility] [place] PATELLA REPAIR LATERNAL RELEASE Finger surgery Colonoscopy - MAC (08/23/16) Extraction of cataract 01/05/16 LEFT EYE; 01/19/16 RIGHT EYE Arthroplasty of knee B/L Appendectomy STANLEY REMOVAL B/L Family History Mother , AGE 93 No problems noted. Father , AGE 56 No problems noted. Sister , AGE 49 Lymphoma Maternal Grandfather Diabetes Maternal Grandmother Alzheimer disease Paternal Grandmother No problems noted. 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 Pets and animals: Yes Pets and animals: cat(s) Sexually active: No Do you think of yourself as: straight/heterosexual Current gender identity: male What is your relationship status?: How often do you talk on the phone with friends or family?: once per week How often do you get together with friends or relatives?: once per week How often do you attend confucianism or jain services?: decline to answer Do you belong to any clubs or organized social groups?: no Panel score (0-1 are the most socially isolated patients): 0 Duration: 15-30 minutes/day Frequency: 3-4 times per week Betsy/Yazidi: Moravian Special betsy needs: No Seatbelt use: always Drive intox or ride w/intox 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
[2024-02-05] MEDS: MORPHine IR 15 MG TAB, 4 TABS/BTL PO (15:32)
== END 2024-02-05 15:35 | disposition home or self-care (01) ==
PROVIDERS: Emergency Provider Emergency Medicine; PCP Family Medicine
DX: K08.89 Other specified disorders of teeth and supporting structures (principal); I10 Essential (primary) hypertension; E78.5 Hyperlipidemia, unspecified; I25.10 Atherosclerotic heart disease of native coronary artery without angina pectoris; I25.2 Old myocardial infarction
CPT/HCPCS: 99283

== ENCOUNTER 2024-02-16 12:45 | Outpatient (CLI) | payer MEDICARE, SELFPAY ==
--- NOTE | 2024-03-05 08:47 | W.CARDEVENT ---
Date of service: 03/05/24 Time of Service: 08:47 Cardiac Event Recorder Referring Provider:: STEPHANI black Indications:: Palpitations Cardiac Event Note: This is a cardiac event monitor. Patient was monitored for 19 hours. Rhythm throughout was sinus. Average heart rate overall was 74. Minimum was 57, maximum 132 First-degree AV block was noted. There were no other significant dysrhythmias, no atrial fibrillation, high-grade AV block, pauses. No symptoms were reported
== END 2024-02-16 12:46 | disposition home or self-care (01) ==
LOC: CARDOPNVT 12:45
PROVIDERS: PCP Family Medicine; Visit Provider Internal Medicine Cardiovascular Disease
DX: R00.2 Palpitations (principal)
CPT/HCPCS: 93270

== ENCOUNTER 2024-03-05 07:34 | Outpatient (CLI) | payer MEDICARE, SELFPAY | END 2024-03-05 07:35 | disposition home or self-care (01) | LOC: CARDOPNVT 07:34 | PROVIDERS: PCP Family Medicine; Visit Provider Internal Medicine Cardiovascular Disease | DX: R00.2 Palpitations (principal); I44.1 Atrioventricular block, second degree | CPT/HCPCS: 93248 ==

== ENCOUNTER 2024-04-25 15:56 | Outpatient (CLI) | payer OTHER, SELFPAY ==
--- NOTE | 2024-04-25 13:00 | DI.RAD_ITS ---
Exam(s) XR SHOULDER RT COMPLETE 2+V EXAM: XR SHOULDER RT COMPLETE 2+V CLINICAL HISTORY: RIGHT SHOULDER PAIN. TECHNIQUE: 2D digital imaging was performed of the right shoulder. Two images were obtained. Grash ey and axillary views were obtained. COMPARISON: CR XR SHOULDER RT COMPLETE 2+V from 08/30/2019 FINDINGS: BONES: No acute fracture is present. No bony destructive lesion is seen. JOINTS: No dislocation present. There is marked narrowing of the glenohumeral joint. Small osteophyt es are seen at the inferior aspect of the glenohumeral joint. There are degenerative changes seen at the acromioclavicular joint. There is a small spur at the inferior aspect of the acromion. SOFT TISSUE: There are soft tissue calcifications adjacent to the greater tuberosity consistent with calcific tendinitis. IMPRESSION: Arthrosis of the right shoulder. DATA REPOSITORY: RADIATION DOSE DELIVERED:
== END 2024-04-25 15:57 | disposition home or self-care (01) ==
LOC: DIORS 15:57
PROVIDERS: PCP Family Medicine; Visit Provider Student in an Organized Health Care Education/Training Program
DX: M19.011 Primary osteoarthritis, right shoulder (principal)
CPT/HCPCS: 73030

== ENCOUNTER 2024-05-19 20:04 | Inpatient (IN) | payer OTHER, SELFPAY ==
[2024-05-19] VITALS (34 sets, daily range): BP systolic 124–217; BP diastolic 58–82; PULSE 53–107; RESP 9–26; TEMP 36.3; O2SAT 91–100
--- NOTE | 2024-05-19 20:00 | RT.EKG_ITS ---
APPROVED REPORT Exam: Resting ECG Reason for Exam: chest pain Patient Location: E HR:93 bpm ECG Measurements Heart Rate 93 AXIS AL 225 P 46 QRSd 139 QRS -18 QT 392 T 73 QTc 488 Conclusion Sinus rhythm...normal P axis, V-rate 60- 99 Prolonged AL interval...AL >215, V-rate 91-120 IVCD, consider LBBB...QRSd>120, notch/slur R I aVL V5-6 ST elevation secondary to IVCD...Multiple VCG criteria Sinus rhythm with 1st degree AV heart block and LBBB. When compared to prior 03/16/22 LBBB is new. No longer having PVC. WD
--- NOTE | 2024-05-19 20:15 | DI.RAD_ITS ---
Exam(s) XR PORTABLE CHEST AP EXAM: XR PORTABLE CHEST AP CLINICAL HISTORY: Chest pain TECHNIQUE: 2D digital imaging was performed of the chest. One image was obtained. An AP view was ob tained. COMPARISON: CR CHEST 2 VIEWS PA,LAT from 12/28/2013 CR XR CHEST 2V PA LATERAL from 07/05/2018 FINDINGS: MEDIASTINUM: Normal. HEART: Normal. PULMONARY VASCULATURE: Normal. LUNGS: Increased lung markings in the right infrahilar region. This may represent a developing infil trate. The lungs are otherwise clear. PLEURAL SPACE: No pleural effusion or pneumothorax. BONE:Within normal limits for the patient's age. OTHER FINDINGS:Normal. IMPRESSION: Increased right infrahilar lung markings. This may represent developing infiltrate or atelectasis. Please correlate clinically. DATA REPOSITORY: RADIATION DOSE DELIVERED:
--- NOTE | 2024-05-19 20:20 | ED.GENADUL_ITS ---
Discharge Plan Disposition Patient Disposition: Admit to [facility] Discharge Details Chief Complaint: Chest Pain Clinical Impression: Left bundle branch block (LBBB), Chest pain Primary Care Provider: Lalita Bernabe ED Provider: Yvonne Naylor Home Meds and New Rx's Prescriptions: No Action lisinopril [Zestril] 20 mg tablet 20 mg PO DAILY Qty: 90 4RF Stelara 45 MG/0.5 ML syringe 45 mg SQ q3 months Patient Comments: Rx'd by Dr. Jimenez. aj omeprazole 20 mg tablet,delayed release (DR/EC) 20 mg PO DAILY PRN (Reason: reflux) Qty: 90 3RF atorvastatin 20 mg tablet 20 mg PO DAILY Qty: 90 3RF HPI General Date/Time Provider Initiated Documentation: 05/19/24 20:14 . HPI Narrative: 83-year-old male with history of high cholesterol and prior cardiac stent plac ement presents for evaluation of chest pressure. Patient states that he has had pressure in the center of his chest for the last 4 to 5 days. Initially he thought it was due to pain in his thoracic spine. He denies any recent falls or injury. He denies any shortness of breath. No fevers. No cough or cold. No leg pain or swelling. Denies any history of high blood pressure, diabetes, tobacco use. He occasionally drinks alcohol. Last alcohol beverage was 1 week ago. Denies any known history of pancreatitis or gallbladder disease. He has had an ulcer in the past and states that this does kind of feel similar. He states he has a history of PVCs. Last cardiac testing was in 2021. He has not had any stress test or echocardiogram done since that time. He states that the chest pressure has been constant for the last 4 to 5 days. It is not worse with taking a deep breath or movement. Related Data Home Medications ?Medication ?Instructions ?Recorded ?Confirmed ustekinumab 45 mg/0.5 mL 45 mg SQ q3 months 12/23/15 05/19/24 subcutaneous syringe (Stelara) omeprazole 20 mg tablet,delayed 20 mg PO DAILY PRN reflux #90 05/26/23 05/19/24 release tab-caps lisinopril 20 mg tablet (Zestril) 20 mg PO DAILY #90 tab-caps 01/05/24 05/19/24 atorvastatin 20 mg tablet 20 mg PO DAILY #90 tabs 03/27/24 05/19/24 Previous Rx's ?Medication ?Instructions ?Recorded omeprazole 20 mg tablet,delayed 20 mg PO DAILY PRN reflux #90 05/26/23 release tab-caps lisinopril 20 mg tablet (Zestril) 20 mg PO DAILY #90 tab-caps 01/05/24 atorvastatin 20 mg tablet 20 mg PO DAILY #90 tabs 03/27/24 Allergies Allergy/AdvReac Type Severity Reaction Status Date / Time latex Allergy Mild RASH Verified 05/19/24 20:17 minocycline Allergy Lungs Verified 05/19/24 20:17 filled up AEP epinephrine AdvReac Intermediate Totally Verified 05/19/24 20:17 wires me bupropion HCl (From AdvReac It Verified 05/19/24 20:17 Wellbutrin SR) flipped me out MOLDS AND SMUTS Allergy Unknown Rhinitis Uncoded 05/19/24 20:17 minocycline AdvReac Severe pneumonia Uncoded 05/19/24 20:17 General Stated Complaint: Chest Pain HAL: 3 Review of Systems Narrative: Remainder of review of systems otherwise negative except for as noted in the HPI x 10. Exam Narrative Exam Narrative: General: non-toxic, no respiratory distress, comfortable HEENT: normocephalic, atraumatic, lids and lashes normal, PERRL, EOMI, anicteric sclera, no conjunctival injection, moist oral mucosa Card: regular rate and rhythm, S1S2, no murmurs, rubs, or gallops Lungs: good air entry, clear to auscultation bilaterally. no wheezes, rales, rhonchi, or retractions Abd: soft, non-tender, non-distended, normal bowel sounds, no rebound or guarding, no peritoneal signs Musculoskeletal: full range of motion of arms and legs, no tenderness to palpation. no clubbing, cyanosis, or edema Neurologic: appropriate for age, strength normal Psych: alert and oriented Skin: no petechiae, no lesions, warm and dry Course 83-year-old male with history of high cholesterol and coronary disease status post stent placements presents for evaluation of 4 days of constant chest pressure. EKG shows left bundle branch block. This is new compared to prior of 2021. Chest x-ray unremarkable. Troponin is 17 with a repeat of 18. Remainder of laboratory studies unremarkable. Case discussed with [facility] cardiology who reviewed EKG. Given the new left bundle they do recommend treating patient as ACS at this time with aspirin and heparin drip. Patient has already received aspirin. Heparin drip was ordered. They have accepted him in transfer pending bed availability. Case discussed with hospitalist who will admit to their service. Vital Signs Vital signs: Vital Signs Temperature 36.3 C L 05/19/24 20:06 Pulse 107 H 05/19/24 20:06 Respiratory Rate 20 05/19/24 20:06 Blood Pressure 217/62 H 05/19/24 20:06 Pulse Oximetry 97 05/19/24 20:06 Temperature 36.3 C L 05/19/24 20:06 Pulse 107 H 05/19/24 20:06 Respiratory Rate 15 05/19/24 20:10 Respiratory Effort Normal 05/19/24 20:10 Respiratory Depth Normal 05/19/24 20:10 Respiratory Pattern Normal 05/19/24 20:10 Blood Pressure 217/62 H 05/19/24 20:06 Blood Pressure Position Supine 05/19/24 20:06 Pulse Oximetry 97 05/19/24 20:06 Oxygen Delivery Method Room Air 05/19/24 20:06 Oxygen Flow Rate 0 05/19/24 20:06 Medical Decision Making ECG Data Interpretation: 12 lead EKG performed at 2005 Indication: Chest pain Rhythm: Normal sinus rhythm Rate: 93 [place]:Normal Intervals: First-degree AV heart block QRS: Left bundle branch block ST segments: Normal T Waves: Normal INTERPRETATION: Sinus rhythm with first-degree AV heart block and left bundle branch block Comparison to old EK03/16/2022 left ulnar branch block is new, patient no longer having PVCs The 12 lead EKG was interpreted by myself Quality:SDOH Health Related Social Needs: Health related social needs details lack of money for surgeries his insurance doesn't pay for [facility] All Active Problems (Updated 05/19/24 @ 22:48 by Yvonne Naylor MD) Chest pain (Acute) Left bundle branch block (LBBB) (Acute) Arthritis of right glenohumeral joint (Acute) Chondrocalcinosis of knee (Acute) Bilateral primary osteoarthritis of knee (Acute) BILAT DEPO MEDROL 10/03/23 Thoracic compression fracture (Acute) Bilateral knee pain (Acute) Eye abnormalities (Acute) Chronic neck pain (Acute) CAD (coronary artery disease) (Chronic) NSTEMI (non-ST elevated myocardial infarction) (Acute) 02/17/21 to [facility] with stent to RCA RH Back pain (Acute) Pain in Achilles tendon (Acute) Tendonitis of long head of biceps brachii of right shoulder (Acute) Bursitis of right shoulder (Acute) Arthritis of right shoulder region (Acute) Rotator cuff tear, right (Acute) Right shoulder pain (Acute) Axillary mass (Acute) Lipoma (Acute) Benign prostatic hyperplasia (Chronic 10/23/12) Sleep disorder (Chronic) unable to use CPAP Shoulder pain, right (Chronic 05/14/14) Psoriatic arthritis (Chronic) on Embrel, followed by Multiple nevi (Chronic) Lumbar radiculopathy, chronic (Chronic 11/11/14) MRI 2014: 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 Left tennis elbow (Chronic 09/27/16) Knee pain (Chronic 05/14/14) Left knee; close to needing replacement Hyperlipidemia (Chronic) elevated LDL and spinal stenosis Essential hypertension (Chronic) Esophageal reflux (Chronic) S/P Hpylori treatment; S/P upper GI which was normal Dupuytren's contracture of left hand (Chronic 12/28/16) LRH-LEFT TRACY AND RING PLUS SMALL FINGER Diverticulitis of colon (Chronic 03/29/08) Depressive disorder (Chronic) Chronic rhinitis (Chronic 06/07/13) Cervical disc prolapse with radiculopathy (Chronic) Anxiety (Chronic) unresolved grief; chronic benzo. 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) Alcohol intake above recommended sensible limits with complication (Chronic 01/18/17) Actinic keratosis (Chronic) Medical History Diaphoresis Weight loss Alcohol intake above recommended sensible limits about 6/week now; in 2007 was 2-3x's/week, 3-4 drinks Blood glucose abnormal elevated FBS; family Hx of DM Drug use disorder chronic benzo use Disorder of liver 08/22/12 Partner w/Hep C; Hepatic cysts; h/o ETOH use 10/23/12--elevated LDH Impacted cerumen 06/07/13 Impacted cerumen 07/18/14 Elev transaminase/LDH (10/23/12) HTN (hypertension) GERD (gastroesophageal reflux disease) VERÓNICA (obstructive sleep apnea) Diverticulosis Surgical History H/O arthroscopy of knee bilateral S/P appendectomy H/O knee surgery patella repair (lateral release) S/P laminectomy exploration; L4-5; [facility]; Dr. Sanchez H/O cataract removal with insertion of prosthetic lens 01/05/16 O.S.-01-05-2016, O.D.-01-19-2016 laminectomy (~1977) exploration;L4-5; DR. SANCHEZ @ [facility] PATELLA REPAIR LATERNAL RELEASE Finger surgery Colonoscopy - MAC (08/23/16) Extraction of cataract 01/05/16 LEFT EYE; 01/19/16 RIGHT EYE Arthroplasty of knee B/L Appendectomy STANLEY REMOVAL B/L Family History Mother , AGE 93 No problems noted. Father , AGE 56 No problems noted. Sister , AGE 49 Lymphoma Maternal Grandfather Diabetes Maternal Grandmother Alzheimer disease Paternal Grandmother No problems noted. 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 Pets and animals: Yes Pets and animals: cat(s) Sexually active: No Do you think of yourself as: straight/heterosexual Current gender identity: male What is your relationship status?: How often do you talk on the phone with friends or family?: once per week How often do you get together with friends or relatives?: once per week How often do you attend taoism or buddhist services?: decline to answer Do you belong to any clubs or organized social groups?: no Panel score (0-1 are the most socially isolated patients): 0 Duration: 15-30 minutes/day Frequency: 3-4 times per week Betsy/Congregation: Evangelical Special betsy needs: No Seatbelt use: always Drive intox or ride w/intox non emergency services ambulance driver: No Do you feel safe at home: Yes Do you feel safe in your relationship?: Yes Victim of physical abuse: No Victim of emotional abuse: No Victim of sexual abuse: No
[2024-05-19] MEDS: Aspirin 81 MG CHEW 324 MG CH (20:23)
[2024-05-19 20:25] LABS: Abs Immature Grans 0.04 10^3/uL (0.0-0.06); Absolute Basophil Count 0.07 10^3/uL (0.0-0.2); Absolute Eosinophil Count 0.21 10^3/uL (0.0-0.7); Absolute Lymphocyte Count 3.07 10^3/uL (1.2-3.4); Absolute Monocyte Count 0.78 10^3/uL (0.1-0.8); Absolute Neutrophil Count 5.86 10^3/uL (1.2-6.7); Basophils % 0.7 %; Eosinophils % 2.1 %; HCT 48.1 % (40.0-50.0); Immature Grans % 0.4 %; Lymphocytes % 30.6 %; MCH 30.9 pg (27.0-33.0); MCHC 33.3 % (32.0-36.0); MCV 93 fL (80-95); MPV 10.3 fL (8.0-11.0); Monocytes % 7.8 %; Neutrophils % 58.4 %; Platelet Count 241 10^3/uL (130-400); RBC 5.18 10^6/uL (4.36-5.78); RDW 13.1 % (11.8-14.1); RDW-SD 44.8 fL; WBC 10.03 10^3/uL (4.4-10.8)
[2024-05-19] MEDS: Famotidine 20 MG/2 ML VIAL 40 MG IVP (20:25)
[2024-05-19] MEDS: Mylanta Suspension 30 ML CUP PO (20:32)
[2024-05-19 20:38] LABS: ALT 41 U/L (16-63); AST 19 U/L (15-37); Albumin 4.2 g/dL (3.4-5.0); Alkaline Phosphatase 78 U/L (46-116); Anion Gap 7.5 mmol/L (3-11); BUN 9 mg/dL (7-18); Bilirubin, Total 0.46 mg/dL (0.2-1.0); CO2 31.5 mmol/L (21.0-32.0); Calcium 9.1 mg/dL (8.5-10.1); Chloride 102 mmol/L (98-107); Estimated GFR 75.61 (mL/min/1.73m2); Glucose 148 mg/dL (74-106); Lipase 47 U/L (<78); Magnesium 1.9 mg/dL (1.8-2.4); Sodium 141 mmol/L (136-145); Total Protein 7.8 g/dL (6.4-8.2); Troponin I 17 ng/L (<or=76)
[2024-05-19 21:38] LABS: Troponin I 18 ng/L (<or=76)
--- NOTE | 2024-05-19 22:12 | DI.VRAD_ITS ---
PROCEDURE INFORMATION: Exam: XR Chest Exam date and time: 05/19/2024 8:46 PM Age: 83 years old Clinical indication: Other: Chest pain TECHNIQUE: Imaging protocol: Radiologic exam of the chest. Views: 1 view. COMPARISON: CT CHEST PE ABD PELVIS W 02/17/2021 8:47 AM FINDINGS: Limitations: Patient positioning is lordotic. The examination is underpenetrated. Lungs: No pulmonary consolidation is seen. Pleural spaces: No pleural effusion or pneumothorax is demonstrated. Heart/Mediastinum: The heart appears normal in size. Diaphragm: There is elevation of the right hemidiaphragm. Bones/joints: The visualized bony structures appear grossly intact, as seen. There are degenerative changes at the acromioclavicular joints. IMPRESSION: No active disease is seen in the chest. Dictated and Authenticated by: Jf Duke MD. Orderin Cyndy Russell MD
[2024-05-19] MEDS: Heparin 5,000 UNITS/ML VIAL 5000 UNITS IV (22:59)
[2024-05-19] MEDS: Heparin in 0.45% NaCl 25,000 UNIT/250 ML BAG 10.342 UNIT IVINF (23:02)
[2024-05-19 23:29] LABS: Troponin I 25 ng/L (<or=76)
--- NOTE | 2024-05-19 23:39 | W.PM.HP.N ---
Date of service: 05/19/24 Time of Service: 23:39 Assessment and Plan Assessment and plan (1) Left bundle branch block (LBBB): Status: Acute Assessment and plan: The patient comes in [facility] CAD s/p stent x1 and has had substernal pressure-like chest pain for the past 4 days. His EKG is concerning for St elevations in v1-3 and LBBB. There is no recent EKG to compare this to. His troponin is neg x2. ER has discussed the case w/ and will be transferred and will be treated medically for now w/ ASA/Brilinta/Lipitor/Heparin gtt. -Cont to monitor on telemetry -Cont w/ medical tx w/ ASA, Brilinta, BB, Statin and Heparin gtt -Use NTG prn and Morphine prn -Oxy sat is normal on RA - -Transfer to [facility] for C evaluation (2) Hyperlipidemia: Status: Chronic Assessment and plan: -Cont w/ Atorvastatin 20mg daily History of Present Illness History of Present Illness Chief Complaint: Chest Pain Narrative: The patient is a 83 y/o C M [facility] CAD s/p RCA stent x1 (2020) who comes in today due to on-going chest pain for the past 4 days. He had a coughing fit which he felt threw out his back. He has had a prior thoracic compression fracture and follows up / [facility] pain and spine center. In the past he has done adjustments which has resulted in alleviating his pains. He has been unable to obtain any relief and notes that his pain is radiates from the left lateral chest to the substernal area. It is described as a constant pressure like pain which can increased and decrease in its intensity but has not fully resolved. He has not used any nitroglycerin to assist w/ pain relief. He denies any palpitations, wheezing or dyspnea. He has no new orthopnea, weight gain or lower extremity edema. He has no fever, chills or night sweats. He is not on any Aspirin and only takes Atorvastatin 20mg daily Review of Systems Constitutional Constitutional: Denies chills, Denies fever(s), Reports headache(s) and Denies night sweats Eyes Eyes: Denies diplopia and Denies eye pain ENT Ears, Nose, Mouth, and Throat: Denies dysphagia, Denies vertigo, Denies dizziness, Reports headache(s), Denies nasal congestion and Denies sore throat Cardiovascular Cardiovascular: Reports chest pain, Denies rapid heart rate, Denies irregular heart rhythm, Denies lightheadedness, Denies dyspnea, Denies dyspnea on exertion and Denies orthopnea Respiratory Respiratory: Reports cough, Denies hemoptysis, Denies pain on inspiration, Denies dyspnea, Denies dyspnea on exertion and Denies wheezing Gastrointestinal Gastrointestinal: Denies hematochezia, Denies coffee ground emesis, Denies dysphagia, Denies diarrhea, Denies loose stools, Denies nausea, Denies vomiting and Denies hematemesis Genitourinary Genitourinary: Denies dysuria Musculoskeletal Musculoskeletal: Denies arthralgias and Denies numbness Neurologic Neurologic: Denies abnormal speech, Denies behavioral changes, Denies vertigo, Denies dizziness, Reports headache(s) and Denies numbness Psychiatric Psychiatric: Denies behavioral changes Allergic/Immunologic Allergic/Immunologic: Denies wheezing PFSH All Active Problems (Updated 05/19/24 @ 22:48 by Yvonne Naylor MD) Chest pain (Acute) Left bundle branch block (LBBB) (Acute) Arthritis of right glenohumeral joint (Acute) Chondrocalcinosis of knee (Acute) Bilateral primary osteoarthritis of knee (Acute) BILAT DEPO MEDROL 10/03/23 Thoracic compression fracture (Acute) Bilateral knee pain (Acute) Eye abnormalities (Acute) Chronic neck pain (Acute) CAD (coronary artery disease) (Chronic) NSTEMI (non-ST elevated myocardial infarction) (Acute) 02/17/21 to [facility] with stent to RCA RH Back pain (Acute) Pain in Achilles tendon (Acute) Tendonitis of long head of biceps brachii of right shoulder (Acute) Bursitis of right shoulder (Acute) Arthritis of right shoulder region (Acute) Rotator cuff tear, right (Acute) Right shoulder pain (Acute) Axillary mass (Acute) Lipoma (Acute) Benign prostatic hyperplasia (Chronic 10/23/12) Sleep disorder (Chronic) unable to use CPAP Shoulder pain, right (Chronic 05/14/14) Psoriatic arthritis (Chronic) on Embrel, followed by Multiple nevi (Chronic) Lumbar radiculopathy, chronic (Chronic 11/11/14) MRI 2015: 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 Left tennis elbow (Chronic 09/27/16) Knee pain (Chronic 05/14/14) Left knee; close to needing replacement Hyperlipidemia (Chronic) elevated LDL and spinal stenosis Essential hypertension (Chronic) Esophageal reflux (Chronic) S/P Hpylori treatment; S/P upper GI which was normal Dupuytren's contracture of left hand (Chronic 12/28/16) LRH-LEFT TRACY AND RING PLUS SMALL FINGER Diverticulitis of colon (Chronic 03/29/08) Depressive disorder (Chronic) Chronic rhinitis (Chronic 06/07/13) Cervical disc prolapse with radiculopathy (Chronic) Anxiety (Chronic) unresolved grief; chronic benzo. 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) Alcohol intake above recommended sensible limits with complication (Chronic 01/18/17) Actinic keratosis (Chronic) Medical History Diaphoresis Weight loss Alcohol intake above recommended sensible limits about 6/week now; in 2007 was 2-3x's/week, 3-4 drinks Blood glucose abnormal elevated FBS; family Hx of DM Drug use disorder chronic benzo use Disorder of liver 08/22/12 Partner w/Hep C; Hepatic cysts; h/o ETOH use 10/23/12--elevated LDH Impacted cerumen 06/07/13 Impacted cerumen 07/18/14 Elev transaminase/LDH (10/23/12) HTN (hypertension) GERD (gastroesophageal reflux disease) VERÓNICA (obstructive sleep apnea) Diverticulosis Surgical History H/O arthroscopy of knee bilateral S/P appendectomy H/O knee surgery patella repair (lateral release) S/P laminectomy exploration; L4-5; [facility]; Dr. Sanchez H/O cataract removal with insertion of prosthetic lens 01/05/16 O.S.-01-05-2016, O.D.-01-19-2016 laminectomy (~1977) exploration;L4-5; DR. SANCHEZ @ [facility] PATELLA REPAIR LATERNAL RELEASE Finger surgery Colonoscopy - MAC (08/23/16) Extraction of cataract 01/05/16 LEFT EYE; 01/19/16 RIGHT EYE Arthroplasty of knee B/L Appendectomy STANLEY REMOVAL B/L Family History Mother , AGE 93 No problems noted. Father , AGE 56 No problems noted. Sister , AGE 49 Lymphoma Maternal Grandfather Diabetes Maternal Grandmother Alzheimer disease Paternal Grandmother No problems noted. 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 Pets and animals: Yes Pets and animals: cat(s) Sexually active: No Do you think of yourself as: straight/heterosexual Current gender identity: male What is your relationship status?: How often do you talk on the phone with friends or family?: once per week How often do you get together with friends or relatives?: once per week How often do you attend advent or adventism services?: decline to answer Do you belong to any clubs or organized social groups?: no Panel score (0-1 are the most socially isolated patients): 0 Duration: 15-30 minutes/day Frequency: 3-4 times per week Betsy/Mormonism: Moravian Special betsy needs: No Seatbelt use: always Drive intox or ride w/intox roll off driver: No Do you feel safe at home: Yes Do you feel safe in your relationship?: Yes Victim of physical abuse: No Victim of emotional abuse: No Victim of sexual abuse: No Meds Allergies and Home Medications Allergies Allergy/AdvReac Type Severity Reaction Status Date / Time latex Allergy Mild RASH Verified 05/19/24 20:17 minocycline Allergy Lungs Verified 05/19/24 20:17 filled up AEP epinephrine AdvReac Intermediate Totally Verified 05/19/24 20:17 wires me bupropion HCl (From AdvReac It Verified 05/19/24 20:17 Wellbutrin SR) flipped me out MOLDS AND SMUTS Allergy Unknown Rhinitis Uncoded 05/19/24 20:17 minocycline AdvReac Severe pneumonia Uncoded 05/19/24 20:17 Home Medications ?Medication ?Instructions ?Recorded ?Confirmed ?Type ustekinumab 45 mg/0.5 mL 45 mg SQ q3 months 12/23/15 05/19/24 History subcutaneous syringe (Stelara) omeprazole 20 mg tablet,delayed 20 mg PO DAILY PRN reflux #90 05/26/23 05/19/24 Rx release tab-caps lisinopril 20 mg tablet (Zestril) 20 mg PO DAILY #90 tab-caps 01/05/24 05/19/24 Rx atorvastatin 20 mg tablet 20 mg PO DAILY #90 tabs 03/27/24 05/19/24 Rx Exam Const General: cooperative, healthy appearing, comfortable and no acute distress Nutritional Appearance: average body habitus Orientation: alert, awake and oriented x3 Limitations: mental status not altered HENMT Head: normal to inspection and normocephalic Ears: hearing grossly normal bilaterally and external ears normal General nose exam: external nose normal Face and sinus: normal facial exam Eyes General: appearance normal, both eyes and all related structures Visual Hsu: normal visual hsu by confrontation Alignment and Position: alignment normal Periorbital: periorbital findings normal Eyelids: eyelids normal Neck Neck: normal visual inspection and full ROM Chest Chest: normal inspection of the chest Resp Effort & Inspection: normal respiratory effort Auscultation: clear to auscultation bilaterally Cardio Palpation: normal PMI Rate: regular rate Rhythm: regular rhythm Heart Sounds: S1 normal and S2 normal GI Inspection: normal to inspection Percussion: normal to percussion Auscultation: normal bowel sounds Skin General skin exam: no rashes or lesions noted, elasticity normal and turgor normal Neuro General: patient alert, patient awake, patient oriented x3 and CN's II-XI intact bilaterally Cognition: normal cognition Motor: muscle tone normal throughout Extrem General: normal to inspection Psych Appearance: grossly normal Results Imaging Imaging Studies: CXR Lungs: No pulmonary consolidation is seen. Pleural spaces: No pleural effusion or pneumothorax is demonstrated. Heart/Mediastinum: The heart appears normal in size. Diaphragm: There is elevation of the right hemidiaphragm. Bones/joints: The visualized bony structures appear grossly intact, as seen. There are degenerative changes at the acromioclavicular joints. Labs 05/19/24 20:10 05/19/24 20:10 Labs: Laboratory Results - last 24 hr 05/19/24 05/19/24 05/19/24 20:10 21:10 23:00 WBC 10.03 RBC 5.18 Hgb 16.0 Hct 48.1 MCV 93 MCH 30.9 MCHC 33.3 RDW 13.1 Plt Count 241 MPV 10.3 Immature Gran % 0.4 Neutrophils % 58.4 Lymphocytes % 30.6 Monocytes % 7.8 Eosinophils % 2.1 Basophils % 0.7 Nucleated RBC % 0.0 Absolute Neutrophils 5.86 Absolute Lymphocytes 3.07 Absolute Monocytes 0.78 Absolute Eosinophils 0.21 Absolute Basophils 0.07 Sodium 141 Potassium 4.0 Chloride 102 Carbon Dioxide 31.5 Anion Gap 7.5 BUN 9 Creatinine 1.0 Est GFR (CKD-EPI 2020) 75.61 Glucose 148 H Calcium 9.1 Magnesium 1.9 Total Bilirubin 0.46 AST 19 ALT 41 Alkaline Phosphatase 78 Troponin I 17 18 25 Total Protein 7.8 Albumin 4.2 Lipase 47 Last Vital Signs Temp 36.3 C L 05/19/24 20:06 Pulse 68 05/19/24 23:20 Resp 14 05/19/24 23:20 BP 163/58 H 05/19/24 23:01 Pulse Ox 99 05/19/24 23:20 Time Spent Time spent with Patient: 55-74 minutes Time was spent: preparing to see the patient(eg.review tests), obtaining and/or reviewing separately otained hiistory, ordering medications,tests, procedures, referring, communicating with other health home health care coordinator, indepentently interpreting results, counseling the patient and care coordination
[2024-05-20] VITALS (49 sets, daily range): BP systolic 140–148; BP diastolic 66–98; PULSE 57–98; RESP 8–20; TEMP 36.6–36.7; O2SAT 90–99
[2024-05-20 05:19] LABS: PTT Activated 101.8 sec (20.6-30.2)
--- NOTE | 2024-05-20 07:50 | NUR.NOTE ---
Nursing Note:Patient requested to speak with the hospitalist about his care plan. Patient believes that his cardiac symptoms are not new. He believes that most of his symptoms are due to a new back problem. Patient would like to have another EKG to compare with older ones. Patient is also upset about being NPO. I sent a webex to hospitalist about speaking with the patient
[2024-05-20] MEDS: Atorvastatin 20 MG TAB PO (08:58)
--- NOTE | 2024-05-20 10:51 | W.PC.ACHO ---
Registration Status: Primary Language: Preferred Language: ED Information & Data Chief Complaint Chest Pain 05/19/24 20:24 Triage Note pt c/o sternal chest 05/19/24 20:06 pressure thats been going on 4-5 days increasing tonight , no medications [employer] 3RD SHIFT, pt does have cardiac stent. Medical / Surgical History (Last Reviewed 05/19/24 @ 20:22 by Yvonne Naylor MD) Diaphoresis Weight loss Alcohol intake above recommended sensible limits Blood glucose abnormal Drug use disorder Disorder of liver Impacted cerumen Impacted cerumen Elev transaminase/LDH (10/23/12) HTN (hypertension) GERD (gastroesophageal reflux disease) VERÓNICA (obstructive sleep apnea) Diverticulosis (Last Reviewed 05/19/24 @ 20:22 by Yvonne Naylor MD) H/O arthroscopy of knee S/P appendectomy H/O knee surgery S/P laminectomy H/O cataract removal with insertion of prosthetic lens laminectomy (~1977) PATELLA REPAIR Finger surgery Colonoscopy - MAC (08/23/16) Extraction of cataract Arthroplasty of knee Appendectomy STANLEY REMOVAL B/L Most Recent Vital Signs Temperature 36.3 C L 05/19/24 20:06 Pulse 67 05/20/24 06:50 Pulse 73 05/20/24 07:40 Respiratory Rate 15 05/20/24 07:40 Respiratory Effort Normal 05/19/24 20:10 Respiratory Depth Normal 05/19/24 20:10 Respiratory Pattern Normal 05/19/24 20:10 Blood Pressure 148/94 H 05/20/24 06:32 Blood Pressure Mean 109 05/20/24 06:32 Blood Pressure Position Supine 05/19/24 20:06 Pulse Oximetry 95 05/20/24 06:50 Oxygen Delivery Method Room Air 05/19/24 20:06 Oxygen Flow Rate 0 05/19/24 20:06 Allergies latex Allergy (Mild, Verified 05/19/24 20:17) RASH minocycline Allergy (Verified 05/19/24 20:17) Lungs filled up AEP epinephrine Adverse Reaction (Intermediate, Verified 05/19/24 20:17) Totally wires me bupropion HCl (From Wellbutrin SR) Adverse Reaction (Verified 05/19/24 20:17) It flipped me out uncoordinated MOLDS AND SMUTS Allergy (Unknown, Uncoded 05/19/24 20:17) Rhinitis minocycline Adverse Reaction (Severe, Uncoded 05/19/24 20:17) pneumonia esosinophilic pneumonia Precautions Isolation Standard precaution 05/19/24 20:10 Active Medications Generic Name Dose Route Start Last Admin Trade Name Fátima PRN Reason Stop Dose Admin Aspirin 81 mg 05/20/24 08:30 05/20/24 08:59 Aspirin 81 Mg Chew PO Not Given DAILY BERNICE Atorvastatin Calcium 20 mg 05/20/24 08:30 05/20/24 08:58 Atorvastatin 20 Mg Tab PO 20 mg DAILY BERNICE Administration Carvedilol 6.25 mg 05/20/24 08:30 05/20/24 08:59 Carvedilol 6.25 Mg Tab PO Not Given BID BERNICE Heparin Sodium/Sodium Chloride 25,000 unit in 250 mls @ 0 mls/hr 05/19/24 22:45 05/20/24 05:30 IVINF 9.86 units/kg/hr INFUSION BERNICE 8.5 mls/hr Titration Protocol Per Protocol Ticagrelor 90 mg 05/20/24 08:30 05/20/24 09:00 Ticagrelor 90 Mg Tab PO Not Given BID BERNICE IV IV Catheter Type [Right Peripheral IV Antecubital] IV Catheter Gauge [Right 18 Antecubital] Diet Orders Category Date Time Status Nothing Per Oral [DIET] Nutrition 05/20/24 Breakfast Active Diagnostics 05/20/24 05/20/24 05/19/24 Range/Units 11:00 04:48 23:00 WBC (4.4-10.8) 10^3/uL RBC (4.36-5.78) 10^6/uL Hgb (13.5-17.5) g/dL Hct (40.0-50.0) % MCV (80-95) fL MCH (27.0-33.0) pg MCHC (32.0-36.0) % RDW (11.8-14.1) % Plt Count (130-400) 10^3/uL MPV (8.0-11.0) fL Immature Gran % % Neutrophils % % Lymphocytes % % Monocytes % % Eosinophils % % Basophils % % Nucleated RBC % (0.0-0.3) % Absolute Neutrophils (1.2-6.7) 10^3/uL Absolute Lymphocytes (1.2-3.4) 10^3/uL Absolute Monocytes (0.1-0.8) 10^3/uL Absolute Eosinophils (0.0-0.7) 10^3/uL Absolute Basophils (0.0-0.2) 10^3/uL APTT Pending 101.8 H* (20.6-30.2) sec Sodium (136-145) mmol/L Potassium (3.5-5.1) mmol/L Chloride (98-107) mmol/L Carbon Dioxide (21.0-32.0) mmol/L Anion Gap (3-11) mmol/L BUN (7-18) mg/dL Creatinine (0.70-1.30) mg/dL Est GFR (CKD-EPI 2020) (mL/min/1.73m2) Glucose (74-106) mg/dL Calcium (8.5-10.1) mg/dL Magnesium (1.8-2.4) mg/dL Total Bilirubin (0.2-1.0) mg/dL AST (15-37) U/L ALT (16-63) U/L Alkaline Phosphatase (46-116) U/L Troponin I 25 (<or=76) ng/L Total Protein (6.4-8.2) g/dL Albumin (3.4-5.0) g/dL Lipase (<78) U/L 05/19/24 05/19/24 Range/Units 21:10 20:10 WBC 10.03 (4.4-10.8) 10^3/uL RBC 5.18 (4.36-5.78) 10^6/uL Hgb 16.0 (13.5-17.5) g/dL Hct 48.1 (40.0-50.0) % MCV 93 (80-95) fL MCH 30.9 (27.0-33.0) pg MCHC 33.3 (32.0-36.0) % RDW 13.1 (11.8-14.1) % Plt Count 241 (130-400) 10^3/uL MPV 10.3 (8.0-11.0) fL Immature Gran % 0.4 % Neutrophils % 58.4 % Lymphocytes % 30.6 % Monocytes % 7.8 % Eosinophils % 2.1 % Basophils % 0.7 % Nucleated RBC % 0.0 (0.0-0.3) % Absolute Neutrophils 5.86 (1.2-6.7) 10^3/uL Absolute Lymphocytes 3.07 (1.2-3.4) 10^3/uL Absolute Monocytes 0.78 (0.1-0.8) 10^3/uL Absolute Eosinophils 0.21 (0.0-0.7) 10^3/uL Absolute Basophils 0.07 (0.0-0.2) 10^3/uL APTT (20.6-30.2) sec Sodium 141 (136-145) mmol/L Potassium 4.0 (3.5-5.1) mmol/L Chloride 102 (98-107) mmol/L Carbon Dioxide 31.5 (21.0-32.0) mmol/L Anion Gap 7.5 (3-11) mmol/L BUN 9 (7-18) mg/dL Creatinine 1.0 (0.70-1.30) mg/dL Est GFR (CKD-EPI 2020) 75.61 (mL/min/1.73m2) Glucose 148 H (74-106) mg/dL Calcium 9.1 (8.5-10.1) mg/dL Magnesium 1.9 (1.8-2.4) mg/dL Total Bilirubin 0.46 (0.2-1.0) mg/dL AST 19 (15-37) U/L ALT 41 (16-63) U/L Alkaline Phosphatase 78 (46-116) U/L Troponin I 18 17 (<or=76) ng/L Total Protein 7.8 (6.4-8.2) g/dL Albumin 4.2 (3.4-5.0) g/dL Lipase 47 (<78) U/L Intake and Output - 24 Hour Total 05/19/24 20:04 thru 05/20/24 05:30 Intake Total 66.878 Balance 66.878 Weight 86.183 kg Intake: IV 66.878 Falls Risk Assessment History of Falls No History 05/19/24 20:10 Contributing Factors No Factors 05/19/24 20:10 Ambulatory Aids Independent 05/19/24 20:10 Tubes/Lines None 05/19/24 20:10 Gait Evaluation No gait disturbance 05/19/24 20:10 Cognition No cognitive impairment 05/19/24 20:10 Fall Total Score 0 05/19/24 20:10 Level of Risk Standard/Low Risk 05/19/24 20:10 Problems (Last Reviewed 05/19/24 @ 20:22 by Yvonne Naylor MD) Chest pain (Acute) Left bundle branch block (LBBB) (Acute) Hyperlipidemia (Chronic) Notes 05/20/24 07:50 Nursing Notes by Pratibha Curry Nursing Note:Patient requested to speak with the hospitalist about his care plan. Patient believes that his cardiac symptoms are not new. He believes that most of his symptoms are due to a new back problem. Patient would like to have another EKG to compare with older ones. Patient is also upset about being NPO. I sent a webex to hospitalist about speaking with the patient Initialized on 05/20/24 07:50 - END OF NOTE v v v v v v v v v Sending and/or Receiving Nurses: Please use comment section below to note any information pertinent to the patient hand-off not included above. Information / Comments: Pt report received all questions answered. Report received from: Patricio Mckinnon, RN @[id number]
[2024-05-20 11:28] LABS: PTT Activated 56.8 sec (20.6-30.2)
--- NOTE | 2024-05-20 13:15 | RT.EKG_ITS ---
APPROVED REPORT Exam: Resting ECG Reason for Exam: chest pain Patient Location: I HR:74 bpm ECG Measurements Heart Rate 74 AXIS LA 224 P 54 QRSd 140 QRS 17 QT 432 T 17 QTc 480 Conclusion Sinus rhythm...normal P axis, V-rate 50- 99 Borderline prolonged LA interval...LA >212, V-rate 50- 90 Left bundle branch block...QRSd>120, broad/notched R
[2024-05-20 13:56] LABS: Troponin I 24 ng/L (<or=76)
--- NOTE | 2024-05-20 15:22 | W.PM.DS.N ---
Date of service: 05/20/24 Time of Service: 15:22 DS: Diagnosis Discharge Diagnosis (1) Left bundle branch block (LBBB): Status: Acute (2) Hyperlipidemia: Status: Chronic Discharge Plan Disposition Patient Disposition: Home Condition: Improving Discharge Details Reason For Visit: LBBB Admit Date/Time: 05/20/24 00:07 Admit Provider: Jasiel Dutton Attending Provider: Jasiel Dutton Primary Care Provider: Lalita Bernabe [place] Hospital Course Hospital Course: Mr. Harrell is a 83-year-old gentleman with a history of coronary artery disease status post stent placement in 2019 with a repeat cath in 2021 which was reported as normal. 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 Patient states this pain is not similar to the pain he had originally for the stent. His coronary artery disease at that time was found incidentally. At any rate after 4 days of continuous positional chest pain he came into the ED for evaluation. While he was there 2 sets of troponins were drawn which were within normal limits. I repeated 1 troponin up on the floor this was also normal. Originally the patient was going to be sent down to [facility] for cardiac cath due to a new left bundle branch block. The patient was very hesitant to go down there and stated that once again this pain is very similar to the past and reproducible as it was in the past. Patient also has a history of thoracic spine disease which she is attributing this current pain to. I did discuss the case with nurse practitioner Sylvia who is the TECHNICIAN'S HELPER on-call for the cardiology service. Although they did recommend a continued evaluation with a cardiac cath they also thought it was reasonable that he could have an outpatient workup as long as it was expedited. The recommendation was for a chemical stress test. Of note, the patient did have nitro at home but did not consider this an anginal equivalent and therefore did not take any medications. At any rate the patient does want a go home and considering the fact that he had a 4-day history with normal troponins and acute coronary syndrome is essentially not possible. The patient certainly could have coronary artery disease and we do continue with the recommendation for expedited stress test in the outpatient setting. I did a repeat EKG and it did show a left bundle branch block but no ST elevation. He will be discharged with a prescription for Flexeril for muscular pain. Pt will get prescriptions for flexeril as well as for coreg and asprin. Home Meds and New Rx's Prescriptions: New carvedilol 6.25 mg Tablet 6.25 mg PO BID Qty: 60 0RF aspirin [Children's Aspirin] 81 mg Tablet,Chewable 81 mg PO DAILY Qty: 30 0RF cyclobenzaprine 5 mg tablet 5 mg PO QHS PRNQty: 10 0RF Continued lisinopril [Zestril] 20 mg tablet 20 mg PO DAILY Qty: 90 4RF Stelara 45 MG/0.5 ML syringe 45 mg SQ q3 months Patient Comments: Rx'd by Dr. Jimenez. aj omeprazole 20 mg tablet,delayed release (DR/EC) 20 mg PO DAILY PRN (Reason: reflux) Qty: 90 3RF atorvastatin 20 mg tablet 20 mg PO DAILY Qty: 90 3RF Discharge Instructions Referrals: Dorie Rebollar MD [ [facility]] - (follow up osmany to arrange for a chemical stress test) Activity:: no vigorous activity Equipment/Supplies:: No Equipment Needed Diet:: As Tolerated Discharge Orders Discharge Orders: Discharge Order (Routine); Ordered 05/20/24 Ordered By: Иван Zaragoza DS: Summary Time Spent with Patient providing and/or coordinating discharge services: Less than 30 minutes Status at Discharge Functional status at discharge: independent ambulation Overall status at discharge: patient is back to baseline Mental Status: mental status grossly normal Speech and Movement: speech and movement normal Mood: congruent mood Affect: normal affect Quality:SDOH Health Related Social Needs: Health related social needs details lack of money for surgeries his insurance doesn't pay for Exam Narrative Exam Narrative: heent-ncat mmm eomi perrla neck-no lad no jvd cv-rrr no mrg lungs-ctab no amu ext-no cce Const General: cooperative, healthy appearing, comfortable and no acute distress Nutritional Appearance: average body habitus Orientation: alert, awake and oriented x3 Limitations: mental status not altered HENMT Head: normal to inspection and normocephalic Ears: hearing grossly normal bilaterally and external ears normal General nose exam: external nose normal Face and sinus: normal facial exam Eyes General: appearance normal, both eyes and all related structures Visual Hsu: normal visual hsu by confrontation Alignment and Position: alignment normal Periorbital: periorbital findings normal Eyelids: eyelids normal Neck Neck: normal visual inspection and full ROM Chest Chest: normal inspection of the chest Resp Effort & Inspection: normal respiratory effort Auscultation: clear to auscultation bilaterally Cardio Palpation: normal PMI Rate: regular rate Rhythm: regular rhythm Heart Sounds: S1 normal and S2 normal GI Inspection: normal to inspection Percussion: normal to percussion Auscultation: normal bowel sounds Skin General skin exam: no rashes or lesions noted, elasticity normal and turgor normal Neuro General: patient alert, patient awake, patient oriented x3 and CN's II-XI intact bilaterally Cognition: normal cognition Motor: muscle tone normal throughout Extrem General: normal to inspection Psych Appearance: grossly normal Mental Status: mental status grossly normal Speech and Movement: speech and movement normal Mood: congruent mood Affect: normal affect DS: Data Vitals/I&O Vitals and I&O: Vital Signs Temperature 36.6 C 05/20/24 15:11 Temperature Source Temporal Artery Scan 05/20/24 15:11 Pulse 69 05/20/24 15:11 Pulse Rhythm Regular 05/20/24 11:23 Pulse 73 05/20/24 07:40 Respiratory Rate 18 05/20/24 15:11 Respiratory Effort Normal, Non-Labored 05/20/24 11:23 Respiratory Depth Normal 05/20/24 11:23 Respiratory Pattern Normal 05/20/24 11:23 Blood Pressure 143/83 H 05/20/24 15:11 Blood Pressure Mean 109 05/20/24 06:32 Blood Pressure Position Supine 05/19/24 20:06 Pulse Oximetry 99 05/20/24 15:11 Oxygen Delivery Method Room Air 05/20/24 15:11 Oxygen Flow Rate 0 05/20/24 15:11 Pain Level 0 05/20/24 11:14 Intake & Output 05/19/24 05/20/24 05/20/24 23:59 11:59 23:59 Intake Total 119.011 / 519.011 400 / 519.011 Output Total 800 / 800 Balance -680.989 / -280.989 400 / -280.989 Weight 86.183 kg Intake: IV 119.011 / 119.011 Oral 400 / 400 Output: Urine 800 / 800 Other: Urine Appearance Clear Data Completed and Pending Labs on day of discharge: Labs from last 24 hours 05/20/24 05/20/24 05/20/24 17:00 13:30 11:00 WBC RBC Hgb Hct MCV MCH MCHC RDW Plt Count MPV Immature Gran % Neutrophils % Lymphocytes % Monocytes % Eosinophils % Basophils % Nucleated RBC % Absolute Neutrophils Absolute Lymphocytes Absolute Monocytes Absolute Eosinophils Absolute Basophils APTT Pending 56.8 H Sodium Potassium Chloride Carbon Dioxide Anion Gap BUN Creatinine Est GFR (CKD-EPI 2020) Glucose Calcium Magnesium Total Bilirubin AST ALT Alkaline Phosphatase Troponin I 24 Total Protein Albumin Lipase 05/20/24 05/19/24 05/19/24 04:48 23:00 21:10 WBC RBC Hgb Hct MCV MCH MCHC RDW Plt Count MPV Immature Gran % Neutrophils % Lymphocytes % Monocytes % Eosinophils % Basophils % Nucleated RBC % Absolute Neutrophils Absolute Lymphocytes Absolute Monocytes Absolute Eosinophils Absolute Basophils APTT 101.8 H* Sodium Potassium Chloride Carbon Dioxide Anion Gap BUN Creatinine Est GFR (CKD-EPI 2020) Glucose Calcium Magnesium Total Bilirubin AST ALT Alkaline Phosphatase Troponin I 25 18 Total Protein Albumin Lipase 05/19/24 20:10 WBC 10.03 RBC 5.18 Hgb 16.0 Hct 48.1 MCV 93 MCH 30.9 MCHC 33.3 RDW 13.1 Plt Count 241 MPV 10.3 Immature Gran % 0.4 Neutrophils % 58.4 Lymphocytes % 30.6 Monocytes % 7.8 Eosinophils % 2.1 Basophils % 0.7 Nucleated RBC % 0.0 Absolute Neutrophils 5.86 Absolute Lymphocytes 3.07 Absolute Monocytes 0.78 Absolute Eosinophils 0.21 Absolute Basophils 0.07 APTT Sodium 141 Potassium 4.0 Chloride 102 Carbon Dioxide 31.5 Anion Gap 7.5 BUN 9 Creatinine 1.0 Est GFR (CKD-EPI 2020) 75.61 Glucose 148 H Calcium 9.1 Magnesium 1.9 Total Bilirubin 0.46 AST 19 ALT 41 Alkaline Phosphatase 78 Troponin I 17 Total Protein 7.8 Albumin 4.2 Lipase 47 PFSH All Active Problems (Updated 05/20/24 @ 15:21 by Иван Zaragoza MD) Chest pain (Acute) Left bundle branch block (LBBB) (Acute) Arthritis of right glenohumeral joint (Acute) Chondrocalcinosis of knee (Acute) Bilateral primary osteoarthritis of knee (Acute) BILAT DEPO MEDROL 10/03/23 Thoracic compression fracture (Acute) Bilateral knee pain (Acute) Eye abnormalities (Acute) Chronic neck pain (Acute) CAD (coronary artery disease) (Chronic) NSTEMI (non-ST elevated myocardial infarction) (Acute) [place]17[place] [facility] [place] to RCA RH Back pain (Acute) Pain in Achilles tendon (Acute) Tendonitis of long head of biceps brachii of right shoulder (Acute) Bursitis of right shoulder (Acute) Arthritis of right shoulder region (Acute) Rotator cuff tear, right (Acute) Right shoulder pain (Acute) Axillary mass (Acute) Lipoma (Acute) Benign prostatic hyperplasia (Chronic 10/23/12) Sleep disorder (Chronic) unable to use CPAP Shoulder pain, right (Chronic 05/14/14) Psoriatic arthritis (Chronic) on Embrel, followed by Multiple nevi (Chronic) Lumbar radiculopathy, chronic (Chronic 11/11/14) MRI 2015: 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 Left tennis elbow (Chronic 09/27/16) Knee pain (Chronic 05/14/14) Left knee; close to needing replacement Hyperlipidemia (Chronic) elevated LDL and spinal stenosis Essential hypertension (Chronic) Esophageal reflux (Chronic) S/P Hpylori treatment; S/P upper GI which was normal Dupuytren's contracture of left hand (Chronic 12/28/16) LRH-LEFT TRACY AND RING PLUS SMALL FINGER Diverticulitis of colon (Chronic 03/29/08) Depressive disorder (Chronic) Chronic rhinitis (Chronic 06/07/13) Cervical disc prolapse with radiculopathy (Chronic) Anxiety (Chronic) unresolved grief; chronic benzo. 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) Alcohol intake above recommended sensible limits with complication (Chronic 01/18/17) Actinic keratosis (Chronic) Medical History Diaphoresis Weight loss Alcohol intake above recommended sensible limits about 6/week now; in 2007 was 2-3x's/week, 3-4 drinks Blood glucose abnormal elevated FBS; family Hx of DM Drug use disorder chronic benzo use Disorder of liver 08/22/12 Partner w/Hep C; Hepatic cysts; h/o ETOH use 10/23/12--elevated LDH Impacted cerumen 06/07/13 Impacted cerumen 07/18/14 Elev transaminase/LDH (10/23/12) HTN (hypertension) GERD (gastroesophageal reflux disease) VERÓNICA (obstructive sleep apnea) Diverticulosis Surgical History H/O arthroscopy of knee bilateral S/P appendectomy H/O knee surgery patella repair (lateral release) S/P laminectomy exploration; [place] [facility] [place] H/O cataract removal with insertion of prosthetic lens 01/05/16 O.S.-01-05-2016, O.D.-01-19-2016 laminectomy (~1977) exploration;L4-5; [place] SANCHEZ [place] [facility] [place] PATELLA REPAIR LATERNAL RELEASE Finger surgery Colonoscopy - MAC (08/23/16) Extraction of cataract 01/05/16 LEFT EYE; 01/19/16 RIGHT EYE Arthroplasty of knee B/L Appendectomy STANLEY REMOVAL B/L Family History Mother , AGE 93 No problems noted. Father , AGE 56 No problems noted. Sister , AGE 49 Lymphoma Maternal Grandfather Diabetes Maternal Grandmother Alzheimer disease Paternal Grandmother No problems noted. 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 Pets and animals: Yes Pets and animals: cat(s) Sexually active: No Do you think of yourself as: straight/heterosexual Current gender identity: male What is your relationship status?: How often do you talk on the phone with friends or family?: once per week How often do you get together with friends or relatives?: once per week How often do you attend faith or buddhism services?: decline to answer Do you belong to any clubs or organized social groups?: no Panel score (0-1 are the most socially isolated patients): 0 Duration: 15-30 minutes/day Frequency: 3-4 times per week Betsy/L[employer]-Day: [employer] Special betsy needs: No Seatbelt use: always Drive intox or ride w/intox delivery route driver: No Do you feel safe at home: Yes Do you feel safe in your relationship?: Yes Victim of physical abuse: No Victim of emotional abuse: No Victim of sexual abuse: No Time Spent with Patient Time Spent with Patient: <45 minutes Time was spent: preparing to see the patient(eg.review tests), ordering medications,tests, procedures, referring, communicating with other health critical care cns, indepentently interpreting results, counseling the patient and care coordination
--- NOTE | 2024-06-07 19:32 | NUR.NOTE ---
Nursing Note:This RN accessed this chart in regards to an email sent by general manager road production Mimi Adame RN
== END 2024-05-20 15:44 | disposition home or self-care (01) | DRG 310 ==
LOC: ER 05-20 00:13 → EDHOLD 05-20 00:48 → MS 05-20 11:11
PROVIDERS: Hospitalist; Admitting Provider Student in an Organized Health Care Education/Training Program; Emergency Provider Emergency Medicine Emergency Medical Services; PCP Family Medicine; Visit Provider Student in an Organized Health Care Education/Training Program
DX: I44.7 Left bundle-branch block, unspecified (principal); I44.0 Atrioventricular block, first degree; R07.89 Other chest pain; E78.5 Hyperlipidemia, unspecified; I25.10 Atherosclerotic heart disease of native coronary artery without angina pectoris; Z95.5 Presence of coronary angioplasty implant and graft; M19.011 Primary osteoarthritis, right shoulder; M17.0 Bilateral primary osteoarthritis of knee; I25.2 Old myocardial infarction; N40.0 Benign prostatic hyperplasia without lower urinary tract symptoms; K21.9 Gastro-esophageal reflux disease without esophagitis; I10 Essential (primary) hypertension; F32.A Depression, unspecified; F41.9 Anxiety disorder, unspecified; Z79.899 Other long term (current) drug therapy; G47.33 Obstructive sleep apnea (adult) (pediatric); F10.90 Alcohol use, unspecified, uncomplicated
CPT/HCPCS: 00123; 80053; 83690; 93005; 96365; 96375; 96376; 99285; 71045; 83735; 84484; 85025; 85730; 93010; 99223; 99239; J1644

== ENCOUNTER 2024-05-24 00:29 | Outpatient (CLI) | payer MEDICARE, SELFPAY ==
--- NOTE | 2024-05-24 06:15 | DI.NM_ITS ---
APPROVED REPORT Exam: Pharmacologic Patient Location: Out-Patient Room/Bed: Stress Nurse: Jeny Ambrocio RN Ordering Provider:ADRIEL WALKER, Contact Number: [phone] BMI: 28.05 Baseline Rhythm: SB, !st degree AV block, intermittent LBBB, Indications: Chest pain, normal troponins, LBBB, CAD, Medical History Medical History: CAD, HLD, NSTEMI (2020) w/PCI, back pain, HTN, GERD Cardiac Medications: Carvedilol, aspirin, lisinopril, stelara, atorvastatin, omeprazole Allergies: Bupropion, epinephrine, minocycline, latex Cardiac Risk Factors: HTN, HLD, CVD Previous Cardiac Procedures: Cardiac stent (2020) Pretest Chest Pain Characteristics: None Exercise History: Physically active Physical Disabilities: None Lung Sounds: Clear to auscultation Heart Sounds: Regular Stress Test Details Test: Pharmacologic stress testing performed using 0.4 mg of regadenoson per 5 mL given IV over 10 s econds. Reason for pharmacologic stress test: LBBB. Nuclear Acquisition: Rest Tc-99m/Stress Tc-99m 1 day Rest Isotope: Tc-99m Sestamibi. Dose: 10.4 Date: 05/24/2024 Injection Time: 1130 Stress Isotope: Tc-99m Sestamibi. Dose: 32.0 Date: 05/24/2024 Injection Time: 1330 HR Resting HR Supine: 59 bpm Max Heart Rate (APMHR): 139 bpm Target HR (85% APMHR): 118 bpm Max HR Achieved: 91 bpm % of APMHR: 65 Recovery HR: 63 bpm BP Resting BP Supine: 132/68 mmHg Max BP: 138/62 mmHg Recovery BP: 116/54 mmHg ECG Resting ECG: Sinus Bradycardia, 1st degree AV block, intermittent LBBB Stress ECG: Sinus Rhythm, 1st degree AV block, intermittent LBBB ST Change: Nondiagnostic low heart rate Recovery ECG: Sinus Rhythm, 1st degree AV block, intermittent LBBB Recovery ST Change: Nondiagnostic low heart rate Clinical Stress Symptoms: Mild SOB Angina Score: None Rate Pressure Product: 73635 Stress ECG Conclusion 1. Resting electrocardiogram was normal 2. Patient underwent testing using pharmacologic stress with regadenoson 3. Patient developed a LBBB during the test. Peak heart rate achieved was 65% of maximal predicted f or age 4. The electrocardiographic portion of the test was nondiagnostic 5. See MPI report Stress Test Summary STAGE HR BP SpO2 Symptoms NOTES Supine 59 132/68 95% 1 min post Lexiscan injection 65 138/62 97% Mild SOB 3 min post Lexiscan injection 71 128/58 6 min post Lexiscan injection 63 116/54 95% SOB resolved MPI Conclusion Myocardial perfusion is normal. There is no ischemia or evidence of prior infarction Calculated EF is 55%. Wall motion is normal
[2024-05-24] MEDS: Regadenoson 0.4 MG/5 ML SYR IVP (13:30)
== END 2024-05-24 00:49 ==
LOC: DI 00:29
PROVIDERS: PCP Family Medicine; Visit Provider Internal Medicine Cardiovascular Disease
DX: I44.7 Left bundle-branch block, unspecified (principal); I25.10 Atherosclerotic heart disease of native coronary artery without angina pectoris
CPT/HCPCS: 78452; 93016; 93018; 93017; J2785

== ENCOUNTER 2024-05-29 02:10 | Outpatient (CLI) | payer MEDICARE, SELFPAY ==
--- NOTE | 2024-05-29 07:30 | DI.RAD_ITS ---
Exam(s) XR THORACIC SPINE COMPLETE EXAM: XR THORACIC SPINE COMPLETE CLINICAL HISTORY: T3 thoracic back pain,m54.6. TECHNIQUE: 2D digital imaging was performed. Three views. COMPARISON: CT CT CHEST PE ABD PELVIS W from 02/17/2021 CR,XR XR PORTABLE CHEST AP from 05/19/2024 FINDINGS: BONES: There is a mild compression fracture of superior endplate of T12 which appears unchanged from prior CT of 2020.The remaining vertebral bodies and posterior elements are unremarkable. ALIGNMENT: Within normal limits. DISKS: The interverebral disc spaces are maintained. Minimal endplate osteophytes. SOFT TISSUE: Visualized lungs are clear. IMPRESSION: Stable mild T12 compression fracture. The no acute abnormality. DATA REPOSITORY: RADIATION DOSE DELIVERED:
== END 2024-05-29 02:30 ==
LOC: DI 02:11
PROVIDERS: PCP Family Medicine; Visit Provider Family Medicine
DX: S22.080A Wedge compression fracture of T11-T12 vertebra, initial encounter for closed fracture (principal); X58.XXXA Exposure to other specified factors, initial encounter
CPT/HCPCS: 72072

== ENCOUNTER → 2024-06-01 10:28 | Outpatient (BNVA) | payer MEDICARE, SELFPAY | PROVIDERS: PCP Family Medicine; Referring Provider Family Medicine; Visit Provider Internal Medicine Cardiovascular Disease | DX: I25.10 Atherosclerotic heart disease of native coronary artery without angina pectoris (principal); I10 Essential (primary) hypertension | CPT/HCPCS: 99214 ==

== ENCOUNTER 2024-06-21 01:51 | Outpatient (CLI) | payer OTHER, SELFPAY ==
--- NOTE | 2024-06-21 08:00 | DI.RAD_ITS ---
Exam(s) RF JOINT INJ. FLUORO GUID RAD EXAM: RF JOINT INJ. FLUORO GUID RAD CLINICAL HISTORY: R SHOULDER PAIN,fluoro guided injection,[id number],[id number]. TECHNIQUE: 2D and realtime digital imaging was performed. CONTRAST MATERIAL: None COMPARISON: Prior x-rays reviewed. FINDINGS: This right shoulder steroid injection was performed at the request of the referring [place] [facility] [place] Patient was consented prior to this procedure. The patient was placed in the supine position on the fluoroscopy table. Using sterile technique and adequate skin-subcutaneous anesthesia, fluoroscopic guidance was used to advance a 22 gauge spinal needle into the glenohumeral joint using an anterior approach. Intra-artic ular position of the needle was confirmed with injection Omnipaque 300. Thereafter a sterile solution of 3 mL 0.5 percent bupivacaine and 40 milligram Depo-Medrol was inject ed into the joint via the indwelling needle. The indwelling needle was removed. Bandage applied. The patient tolerated this procedure well and there were no intraprocedural complications. IMPRESSION: Successful fluoroscopic guided right glenohumeral joint steroid injection RADIATION DOSE DELIVERED: Ka,r=1.7mGy
[2024-06-21] MEDS: methylPREDNISolone ACETATE 40 MG/ML VIAL IM (14:27)
[2024-06-21] MEDS: Omnipaque 300 MG/ML 10 ML BTL 5 ML IJ (14:27)
[2024-06-21] MEDS: Bupivacaine 0.5% Pres-Free 10 ML VIAL 5 ML IJ (15:07)
[2024-06-21] MEDS: Lidocaine 1% Pres-Free 30 ML VIAL 15 ML IJ (15:08)
== END 2024-06-21 02:11 ==
PROVIDERS: PCP Family Medicine; Visit Provider Student in an Organized Health Care Education/Training Program
DX: M19.011 Primary osteoarthritis, right shoulder (principal); M25.511 Pain in right shoulder
CPT/HCPCS: 20610; 77002; J0665; J1010

== ENCOUNTER 2024-09-28 03:26 | Emergency (ER) | payer MEDICARE, SELFPAY ==
[2024-09-28 03:29] VITALS: BP 177/91; PULSE 74; RESP 18; TEMP 36.3; O2SAT 98
--- NOTE | 2024-09-28 03:30 | DI.RAD_ITS ---
Exam(s) XR SOFT TISSUE NECK EXAM: XR SOFT TISSUE NECK CLINICAL HISTORY: FB. TECHNIQUE: 2D digital imaging was performed. COMPARISON: No exams were available for comparison FINDINGS: Two views-AP and lateral (soft tissue technique) Airways patent. Epiglottis is not swollen. There is no prevertebral soft tissue swelling. There is no radiopaque foreign body seen in the visualized airway. There is chronic advanced multilevel degenerative disc disease in the mid-lower cervical spine. IMPRESSION: No radiopaque foreign body evident. DATA REPOSITORY: RADIATION DOSE DELIVERED:
--- NOTE | 2024-09-28 03:39 | W.ED.GENAD ---
Discharge Plan Disposition Patient Disposition: Home Condition: Stable Discharge Details Clinical Impression: History of swallowed foreign body, Throat irritation Primary Care Provider: Lalita Bernabe ED Provider: Yenni Landry Home Meds and New Rx's Prescriptions: New pantoprazole 40 mg tablet,delayed release (DR/EC) 40 mg PO BID 14 Days Qty: 28 0RF sucralfate 100 mg/mL suspension 10 ml PO QACHS Qty: 200 0RF No Action lisinopril [Zestril] 20 mg tablet 20 mg PO DAILY Qty: 90 4RF carvedilol 6.25 mg tablet 6.25 mg PO BID ustekinumab [Stelara] 45 MG/0.5 ML syringe 45 mg SQ q3 months Patient Comments: Rx'd by Dr. Jimenez. aj atorvastatin 20 mg tablet 20 mg PO DAILY Qty: 90 3RF omeprazole 20 mg tablet,delayed release (DR/EC) 20 mg PO DAILY PRN (Reason: reflux) Qty: 90 3RF aspirin [Children's Aspirin] 81 mg Tablet,Chewable 81 mg PO DAILY Qty: 30 0RF cyclobenzaprine 5 mg tablet 5 mg PO QHS PRNQty: 10 0RF Discharge Instructions Additional Instructions: no signs of retained foreign body in your throat on exam or imaging you are able to eat, drink and swallow normally which is reassuring start the medications prescribed to help with your throat symptoms you likely have irritation from when you swallowed the tooth. you have been referred to surgery clinic for EGD for evaluation HPI General Date/Time Provider Initiated Documentation: 09/28/24 03:38. Limitations to Documentation: no limitations. Information obtained by: patient. HPI Narrative: 83-year-old gentleman past medical history of CAD, hypertension presents for evaluation of a swallowed foreign body. He reports that he had a single tooth denture that had become loose. He reports that he often not fully and then take it out with this tooth. He states that he was eating chips & salsa and thinks that he swallowed it. This occurred 2 nights ago. He states that he feels some discomfort in his throat. He has been able to drink liquids but has been avoiding eating food because he feels scared. He states that he came tonight because it is irritating him a lot. He denies any voice change, shortness of breath or difficulty breathing. He reports multiple bowel movements yesterday but did not note the tooth. Related Data Home Medications ?Medication ?Instructions ?Recorded ?Confirmed ustekinumab 45 mg/0.5 mL 45 mg SQ q3 months 12/23/15 09/28/24 subcutaneous syringe (Stelara) lisinopril 20 mg tablet (Zestril) 20 mg PO DAILY #90 tab-caps 01/05/24 09/28/24 atorvastatin 20 mg tablet 20 mg PO DAILY #90 tabs 03/27/24 09/28/24 aspirin 81 mg chewable tablet 81 mg PO DAILY #30 tabs 05/20/24 09/28/24 (Children's Aspirin) cyclobenzaprine 5 mg tablet 5 mg PO QHS PRN #10 tabs 05/20/24 09/28/24 carvedilol 6.25 mg tablet 6.25 mg PO BID 06/01/24 09/28/24 omeprazole 20 mg tablet,delayed 20 mg PO DAILY PRN reflux #90 06/29/24 09/28/24 release tab-caps pantoprazole 40 mg tablet,delayed 40 mg PO BID 2 weeks #28 tabs 09/28/24 release sucralfate 100 mg/mL oral 10 ml PO QACHS #200 mL 09/28/24 suspension Previous Rx's ?Medication ?Instructions ?Recorded lisinopril 20 mg tablet (Zestril) 20 mg PO DAILY #90 tab-caps 01/05/24 atorvastatin 20 mg tablet 20 mg PO DAILY #90 tabs 03/27/24 aspirin 81 mg chewable tablet 81 mg PO DAILY #30 tabs 05/20/24 (Children's Aspirin) cyclobenzaprine 5 mg tablet 5 mg PO QHS PRN #10 tabs 05/20/24 omeprazole 20 mg tablet,delayed 20 mg PO DAILY PRN reflux #90 06/29/24 release tab-caps pantoprazole 40 mg tablet,delayed 40 mg PO BID 2 weeks #28 tabs 09/28/24 release sucralfate 100 mg/mL oral 10 ml PO QACHS #200 mL 09/28/24 suspension Allergies Allergy/AdvReac Type Severity Reaction Status Date / Time latex Allergy Mild RASH Verified 09/28/24 03:33 minocycline Allergy Lungs Verified 09/28/24 03:33 filled up AEP epinephrine AdvReac Intermediate Totally Verified 09/28/24 03:33 wires me bupropion HCl (From AdvReac It Verified 09/28/24 03:33 Wellbutrin SR) flipped me out General Stated Complaint: ThroatFB HAL: 3 Exam Narrative Exam Narrative: Review of Systems: All systems reviewed & are unremarkable except as noted in HPI and below Well-developed, no acute distress NCAT neck not tender, no appreciable crepitus missing tooth noted no drooling, no stridor, normal voice posterior OP without abnormality RRR Unlabored respiratory effort, CTAB Course Vital Signs Vital signs: Vital Signs Temperature 36.3 C L 09/28/24 03:29 Pulse 74 09/28/24 03:29 Respiratory Rate 18 09/28/24 03:29 Blood Pressure 177/91 H 09/28/24 03:29 Pulse Oximetry 98 09/28/24 03:29 Temperature 36.3 C L 09/28/24 03:29 Temperature Source Temporal Artery Scan 09/28/24 03:29 Pulse 74 09/28/24 03:29 Respiratory Rate 18 09/28/24 03:29 Respiratory Effort Non-Labored 09/28/24 03:36 Respiratory Pattern Normal 09/28/24 03:36 Blood Pressure 177/91 H 09/28/24 03:29 Pulse Oximetry 98 09/28/24 03:29 Oxygen Delivery Method Room Air 09/28/24 03:29 Oxygen Flow Rate 0 09/28/24 03:29 Pain Level 2 09/28/24 03:29 Medical Decision Making Emergent evaluation of possible swallowed foreign body. The patient is well-appearing, I do not suspect an acute aspiration. There is no stridor, drooling, voice change, shortness of breath. He has clear equal breath sounds bilaterally. I also have a low suspicion that he has retained foreign body in his neck and certainly does not have any signs of an obstruction as he is able to swallow and eat. He is choosing not to eat, but has been drinking liquids. He has not tried any specific medications for relief of the irritation in his throat. I do not know why it took him so long to come in for evaluation, x-ray imaging of the neck chest and abdomen were obtained. I reviewed the images and the radiology reports and there is no apparent tooth. I suspect that given the duration of time that is passed he is likely had the tooth passed in stool. He was given crackers which she tolerated fine, no choking or irritation noted. He was given a GI cocktail to help with some discomfort until he can start Carafate and increased dose of Protonix tomorrow. He has been referred to surgery for reevaluation and EGD if symptoms persist. Return precautions were advised. Quality:SDOH Health Related Social Needs: Health related social needs details lack of money for surgeries his [facility] All Active Problems (Updated 09/28/24 @ 04:29 by Yenni Landry MD) Throat irritation (Acute) History of swallowed foreign body (Acute) Thoracic back pain (Acute) Left bundle branch block (LBBB) (Acute) Arthritis of right glenohumeral joint (Acute) Chondrocalcinosis of knee (Acute) Bilateral primary osteoarthritis of knee (Acute) BILAT DEPO MEDROL 10/03/23 Thoracic compression fracture (Acute) Bilateral knee pain (Acute) Eye abnormalities (Acute) Chronic neck pain (Acute) CAD (coronary artery disease) (Chronic) NSTEMI (non-ST elevated myocardial infarction) (Acute) 02/17/21 to [facility] [place] with stent to RCA RH Back pain (Acute) Pain in Achilles tendon (Acute) Tendonitis of long head of biceps brachii of right shoulder (Acute) Bursitis of right shoulder (Acute) Arthritis of right shoulder region (Acute) Rotator cuff tear, right (Acute) Right shoulder pain (Acute) Axillary mass (Acute) Lipoma (Acute) Benign prostatic hyperplasia (Chronic 10/23/12) Sleep disorder (Chronic) unable to use CPAP Shoulder pain, right (Chronic 05/14/14) Psoriatic arthritis (Chronic) on Embrel, followed by Multiple nevi (Chronic) Lumbar radiculopathy, chronic (Chronic 11/11/14) MRI 2015: 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 Left tennis elbow (Chronic 09/27/16) Knee pain (Chronic 05/14/14) Left knee; close to needing replacement Hyperlipidemia (Chronic) elevated LDL and spinal stenosis Essential hypertension (Chronic) Esophageal reflux (Chronic) S/P Hpylori treatment; S/P upper GI which was normal Dupuytren's contracture of left hand (Chronic 12/28/16) LRH-LEFT TRACY AND RING PLUS SMALL FINGER Diverticulitis of colon (Chronic 03/29/08) Depressive disorder (Chronic) Chronic rhinitis (Chronic 06/07/13) Cervical disc prolapse with radiculopathy (Chronic) Anxiety (Chronic) unresolved grief; chronic benzo. 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) Alcohol intake above recommended sensible limits with complication (Chronic 01/18/17) Actinic keratosis (Chronic) Medical History Diaphoresis Weight loss Alcohol intake above recommended sensible limits about 6/week now; in 2007 was 2-3x's/week, 3-4 drinks Blood glucose abnormal elevated FBS; family Hx of DM Drug use disorder chronic benzo use Disorder of liver 08/22/12 Partner w/Hep C; Hepatic cysts; h/o ETOH use 10/23/12--elevated LDH Impacted cerumen 06/07/13 Impacted cerumen 07/18/14 Elev transaminase/LDH (10/23/12) HTN (hypertension) GERD (gastroesophageal reflux disease) VERÓNICA (obstructive sleep apnea) Diverticulosis Surgical History H/O arthroscopy of knee bilateral S/P appendectomy H/O knee surgery patella repair (lateral release) S/P laminectomy exploration; L4-5; [facility] [place]; Dr. Sanchez H/O cataract removal with insertion of prosthetic lens 01/05/16 O.S.-01-05-2016, O.D.-01-19-2016 laminectomy (~1977) exploration;L4-5; DR. SANCHEZ @ [facility] [place] PATELLA REPAIR LATERNAL RELEASE Finger surgery Colonoscopy - MAC (08/23/16) Extraction of cataract 01/05/16 LEFT EYE; 01/19/16 RIGHT EYE Arthroplasty of knee B/L Appendectomy STANLEY REMOVAL B/L Family History Mother , AGE 93 No problems noted. Father , AGE 56 No problems noted. Sister , AGE 49 Lymphoma Maternal Grandfather Diabetes Maternal Grandmother Alzheimer disease Paternal Grandmother No problems noted. 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 Pets and animals: Yes Pets and animals: cat(s) Sexually active: No Do you think of yourself as: straight/heterosexual Current gender identity: male What is your relationship status?: How often do you talk on the phone with friends or family?: once per week How often do you get together with friends or relatives?: once per week How often do you attend yazdanism or hindu services?: decline to answer Do you belong to any clubs or organized social groups?: no Panel score (0-1 are the most socially isolated patients): 0 Duration: 15-30 minutes/day Frequency: 3-4 times per week Betsy/Lutheran: Orthodox Special betsy needs: No Seatbelt use: always Drive intox or ride w/intox driver utility worker: No Do you feel safe at home: Yes Do you feel safe in your relationship?: Yes Victim of physical abuse: No Victim of emotional abuse: No Victim of sexual abuse: No
--- NOTE | 2024-09-28 03:45 | DI.RAD_ITS ---
Exam(s) XR ABDOMEN FLAT LATERAL EXAM: XR ABDOMEN FLAT LATERAL CLINICAL HISTORY: swallowed fb. TECHNIQUE: 2D digital imaging was performed. COMPARISON: No exams were available for comparison FINDINGS: Two views Bowel gas pattern is nonspecific. There is no radiopaque foreign body seen in the GI tract below the level the hemidiaphragms. Visualized lung bases are clear. Degenerative disc disease in the lumbar spine noted at multiple levels. IMPRESSION: No radiopaque foreign body evident. Please note that there is a section of the esophagus not covered by the soft tissue neck films nor in this study. There is a possibility that the radiopaque foreign body may be at that level. DATA REPOSITORY: RADIATION DOSE DELIVERED:
--- NOTE | 2024-09-28 03:56 | DI.RAD_ITS ---
Exam(s) XR CHEST 2V PA LATERAL EXAM: XR CHEST 2V PA LATERAL CLINICAL HISTORY: swallowed FB. TECHNIQUE: 2D digital imaging was performed. COMPARISON: CR,XR XR PORTABLE CHEST AP from 05/19/2024 FINDINGS: 2 views: Heart size is normal. The mediastinum is not widened. Lungs are clear. No infiltrates nor pleural effusions. IMPRESSION: No acute pulmonary findings. DATA REPOSITORY: RADIATION DOSE DELIVERED:
--- NOTE | 2024-09-28 04:00 | DI.VRAD_ITS ---
PROCEDURE INFORMATION: Exam: XR Chest Exam date and time: 09/28/2024 3:48 AM Age: 83 years old Clinical indication: Other: Swallowed denture tooth TECHNIQUE: Imaging protocol: Radiologic exam of the chest. Views: 2 views. COMPARISON: CR XR PORTABLE CHEST AP 05/19/2024 8:46 PM FINDINGS: Lungs: The lungs are clear. No consolidative radiopacities. Pleural spaces: No pleural effusion. No pneumothorax. Heart/Mediastinum: The heart is normal size. Bones/joints: Unremarkable. Soft tissues: No unexpected radiopaque foreign bodies visualized. IMPRESSION: No acute cardiopulmonary findings. Dictated and Authenticated by: Mignon Gaviria MD. Orderin Gris Nelson MD
--- NOTE | 2024-09-28 04:05 | DI.VRAD_ITS ---
PROCEDURE INFORMATION: Exam: XR Soft Tissue Neck Exam date and time: 09/28/2024 3:50 AM Age: 83 years old Clinical indication: Other: Swallowed denture tooth TECHNIQUE: Imaging protocol: Radiologic exam of the soft tissues of the neck. COMPARISON: CT HEAD CERVICAL SPINE WO 02/17/2021 8:40 AM FINDINGS: Airway: Normal. No abnormal narrowing. Soft tissues: No unexpected radiopaque foreign bodies. Bones/joints: Severe degenerative changes are present throughout the cervical spine including intervertebral disc space narrowing, endplate sclerosis and osteophytosis. IMPRESSION: 1. No unexpected radiopaque foreign bodies. 2. Severe degenerative change of the cervical spine. Dictated and Authenticated by: Mignon Gaviria MD. Orderin Gris Nelson MD
[2024-09-28 04:41] VITALS: BP 178/81; PULSE 80; RESP 18; O2SAT 99
--- NOTE | 2024-09-28 04:53 | DI.VRAD_ITS ---
PROCEDURE INFORMATION: Exam: XR Abdomen Exam date and time: 09/28/2024 4:07 AM Age: 83 years old Clinical indication: Other: Swallowed denture tooth TECHNIQUE: Imaging protocol: Radiologic exam of the abdomen. Views: 2 Views. Upright and supine views. COMPARISON: CT CHEST PE ABD PELVIS W 02/17/2021 8:47 AM FINDINGS: Gastrointestinal tract: Moderate colonic stool burden. Intraperitoneal space: Normal. No free air. Vasculature: Heavy atherosclerotic disease. Bones/joints: Diffuse degenerative change of the visualized osseous structures. T12 compression deformity. This is a chronic findings. IMPRESSION: 1. No acute abnormality. 2. No radiodense foreign body. Dictated and Authenticated by: Luciano Rossi MD. Orderin Gris Nelson MD
== END 2024-09-28 04:43 | disposition home or self-care (01) ==
PROVIDERS: Emergency Provider Emergency Medicine; PCP Family Medicine
DX: J39.2 Other diseases of pharynx (principal); Z87.821 Personal history of retained foreign body fully removed
CPT/HCPCS: 99283; 99284; 70360; 71046; 74019

== ENCOUNTER 2025-02-11 14:46 | Outpatient (CLI) | payer MEDICARE, SELFPAY ==
[2025-02-11 16:56] LABS: ALT 32 U/L (16-63); AST 22 U/L (15-37); Albumin 4.1 g/dL (3.4-5.0); Alkaline Phosphatase 66 U/L (46-116); Anion Gap 8.7 mmol/L (3-11); BUN 10 mg/dL (7-18); Bilirubin, Total 0.4 mg/dL (0.2-1.0); CO2 30.3 mmol/L (21.0-32.0); Calcium 9.1 mg/dL (8.5-10.1); Calculated LDL 43 mg/dL (<100); Chloride 101 mmol/L (98-107); Cholesterol 139 mg/dL (<200); Estimated GFR 75.14 (mL/min/1.73m2); Glucose 101 mg/dL (74-106); HDL Cholesterol 59 mg/dL (>or=40); Potassium 4.2 mmol/L (3.5-5.1); Sodium 140 mmol/L (136-145); Total Protein 7.0 g/dL (6.4-8.2); Triglyceride 188 mg/dL (<150); Vitamin B12 368 pg/mL (193-986)
== END 2025-02-11 14:47 | disposition home or self-care (01) ==
LOC: LBO 14:49
PROVIDERS: PCP Family Medicine; Visit Provider Family Medicine
DX: I10 Essential (primary) hypertension (principal); K21.9 Gastro-esophageal reflux disease without esophagitis
CPT/HCPCS: 36415; 80053; 80061; 82607